=== PATIENT | male | born 1955 | race African-American/Black ===

== ENCOUNTER 2017-04-01 10:44 | Inpatient (IN) | payer MEDICAID ==
[~2017-04-01] VITALS: Ht 175.3 cm; Wt 80.0 kg
[2017-04-01] MEDS ORDERED: SODIUM CHLORIDE 0.9% 1,000 ML IV ONE (11:06)
[2017-04-01] MEDS ORDERED: ASPirin 81 mg TAB PO ONE (11:15)
[2017-04-01 11:34] LABS: Mean Corpuscular Hemoglobin 27.9 pg (28.0-32.0); Mean Corpuscular Hgb Conc. 32.7 g/dL (32.0-36.0); Mean Corpuscular Volume 85.5 fL (80.0-100.0); Platelet Count (auto) 297 10^3/uL (140-450); Red Blood Cells 5.38 10^6/uL (4.5-5.90); Red Cell Distribution Width 13.8 % (11.8-14.3); White Blood Cell 7.6 10^3/uL (4.4-10.8)
[2017-04-01 11:51] LABS: INR 0.98 (0.9-1.15); Partial Thromboplastin Time 26.8 sec (22.64-33.71); Prothrombin Time 10.7 sec (9.37-12.3)
[2017-04-01 11:52] LABS: Basophils % (manual) 0 (0.0-2.0); Blast Cells 0; Metamyelocytes % 0; Myelocytes % 0; Promyelocytes % 0; Reactive Lymphocytes 0
[2017-04-01 11:53] LABS: Alanine Aminotransferase 32 U/L (16-61); Albumin 3.5 g/dL (3.4-5.0); Anion Gap 3 (5-15); Aspartate Aminotransferase 26 U/L (15-37); BUN/Creatinine Ratio 10.4; Blood Urea Nitrogen 12 mg/dL (7-18); Calcium 8.6 mg/dL (8.5-10.1); Carbon Dioxide 30 mmol/L (21-32); Chloride 104 mmol/L (98-107); GFR African American 83 mL/min; GFR Non-African American 68 mL/min; Glucose 130 mg/dL (74-106); Magnesium 2.1 mg/dL (1.6-2.6); Potassium 3.9 mmol/L (3.5-5.1); Sodium 137 mmol/L (136-145)
[2017-04-01 11:58] LABS: Alkaline Phosphatase 100 U/L (45-117); Bilirubin, Total 0.4 mg/dL (0.2-1.0); Total Protein 8.2 g/dL (6.4-8.2)
[2017-04-01 12:36] LABS: Band Neutrophils % (manual) 1; Eosinophils % (manual) 2 (0-7); Lymphocytes % (manual) 54 (10.0-50.0); Monocytes % (manual) 11 (0-12)
[2017-04-01] MEDS ORDERED: ONDANSETRON HCL 4 MG/2 ML VIAL IV PRN (13:15)
[2017-04-01] MEDS ORDERED: MORPHINE SULFATE 4 MG/ML SYR/VIAL IV PRN (13:15)
[2017-04-01] MEDS ORDERED: HYDROcodone-ACET 7.5/325MG TAB PO PRN (13:15)
[2017-04-01] MEDS ORDERED: NITROGLYCERIN 0.4 MG SL TAB SL PRN (13:15)
[2017-04-01] MEDS: SODIUM CHLORIDE 0.9% 1,000 ML IV SCH (13:23)
[2017-04-01] MEDS ORDERED: PANTOPRAZOLE 40 MG TAB PO ONE (13:30)
[2017-04-01 13:57] LABS: Cholesterol 117 mg/dL (< 200); HDL Cholesterol 44 mg/dL (40-59); LDL Cholesterol 67 mg/dL (< 100); Triglycerides 99 mg/dL (< 150)
[2017-04-01 17:23] LABS: Urine Bacteria NONE SEEN /hpf (None Seen); Urine Blood TRACE /uL (Negative); Urine Hyaline Cast FEW /lpf (0 - 2); Urine Mucus FEW (None Seen); Urine Specific Gravity 1.026 (1.001-1.035); Urine WBC 2 /hpf (0 - 3)
[2017-04-01 17:39] LABS: Alcohol, Urine < 3.0 mg/dL (0-5); Amphetamine Screen, Urine NEGATIVE (NEGATIVE); Barbiturate Scree,Urine NEGATIVE (NEGATIVE); Benzodiazephine Screen, Urine NEGATIVE (NEGATIVE); Cannabinoid Screen, Urine NEGATIVE (NEGATIVE); Cocaine Screen, Urine NEGATIVE (NEGATIVE); Opiate Scree,Urine POSITIVE (NEGATIVE); Phencyclidine Screen, Urine NEGATIVE (NEGATIVE)
[2017-04-01] MEDS ORDERED: ALPR1TAB2 PO (18:15)
[2017-04-01] MEDS ORDERED: OXYC30TA77 PO (18:15)
[2017-04-01 20:20] VITALS: BP 121/87
[2017-04-02] MEDS: SODIUM CHLORIDE 0.9% 1,000 ML IV SCH ×3 (02:35→10:06)
[2017-04-02 05:00] VITALS: BP 114/73
[2017-04-02 06:50] LABS: Hematocrit 41.3 % (41.0-53.0); Hemoglobin 13.7 g/dL (13.5-17.5); Mean Corpuscular Hemoglobin 28.3 pg (28.0-32.0); Mean Corpuscular Hgb Conc. 33.2 g/dL (32.0-36.0); Mean Corpuscular Volume 85.1 fL (80.0-100.0); Platelet Count (auto) 246 10^3/uL (140-450); Red Blood Cells 4.85 10^6/uL (4.5-5.90); Red Cell Distribution Width 13.7 % (11.8-14.3)
[2017-04-02 07:09] LABS: Anion Gap 3 (5-15); Blood Urea Nitrogen 13 mg/dL (7-18); Carbon Dioxide 27 mmol/L (21-32); Chloride 108 mmol/L (98-107); GFR African American 124 mL/min; GFR Non-African American 103 mL/min; Glucose 86 mg/dL (74-106); Potassium 3.8 mmol/L (3.5-5.1); Sodium 138 mmol/L (136-145)
[2017-04-02 07:19] LABS: Band Neutrophils % (manual) 0; Basophils % (manual) 0 (0.0-2.0); Blast Cells 0; Metamyelocytes % 0; Myelocytes % 0; Promyelocytes % 0; Reactive Lymphocytes 0
[2017-04-02 09:00] VITALS: BP 116/72
[2017-04-02] MEDS: PANTOPRAZOLE 40 MG TAB PO SCH (10:05)
[2017-04-02] MEDS: ASPirin 81 mg TAB PO SCH (10:05)
[2017-04-02 13:00] VITALS: BP 119/75
[2017-04-02 14:46] LABS: Eosinophils % (manual) 2 (0-7); Lymphocytes % (manual) 59 (10.0-50.0); Monocytes % (manual) 12 (0-12)
[2017-04-02] MEDS ORDERED: LORazepam 2MG/ML-1ML VIAL IV ONE (15:00)
[2017-04-02 17:00] VITALS: BP 114/64
[2017-04-02 22:00] VITALS: BP 119/75
[2017-04-03 05:00] VITALS: BP 108/79
[2017-04-03 09:00] VITALS: BP 131/78
[2017-04-03] MEDS: ASPirin 81 mg TAB PO SCH (10:01)
[2017-04-03] MEDS: PANTOPRAZOLE 40 MG TAB PO SCH (10:01)
[2017-04-03 13:00] VITALS: BP 141/75
[2017-04-03 17:00] VITALS: BP 123/83
[2017-04-03] MEDS: SODIUM CHLORIDE 0.9% 1,000 ML IV SCH (18:41)
[2017-04-03 21:49] VITALS: BP 144/81
[2017-04-03] MEDS: PRO-STAT 64 30ML GT SCH (22:04)
[2017-04-04 05:00] VITALS: BP 130/85
[2017-04-04 07:08] LABS: Basophils # (auto) 0 uL; Basophils % (auto) 0.4 % (0.0-2.0); Eosinophils # (auto) 0.2 uL; Eosinophils % (auto) 2.6 % (0.0-7.0); Hematocrit 40.3 % (41.0-53.0); Hemoglobin 13.3 g/dL (13.5-17.5); Lymphocytes # (auto) 3.2 uL; Lymphocytes % (auto) 48.5 % (10.0-50.0); Mean Corpuscular Hemoglobin 28.4 pg (28.0-32.0); Mean Corpuscular Hgb Conc. 32.9 g/dL (32.0-36.0); Mean Corpuscular Volume 86.1 fL (80.0-100.0); Monocytes # (auto) 0.7 uL; Monocytes % (auto) 10.5 % (0.0-12.0); Neutrophils # (auto) 2.5 uL; Nucleated Red Blood Cells % 0.1 %; Platelet Count (auto) 260 10^3/uL (140-450); Red Blood Cells 4.68 10^6/uL (4.5-5.90); Red Cell Distribution Width 13.6 % (11.8-14.3); White Blood Cell 6.6 10^3/uL (4.4-10.8)
[2017-04-04] MEDS ORDERED: LIDOCAINE 2%HCL (LOCAL ANESTH.) INJ 20ML MDV ONE (07:14)
[2017-04-04 07:31] LABS: BUN/Creatinine Ratio 14.1; Calcium 8.3 mg/dL (8.5-10.1); Potassium 3.6 mmol/L (3.5-5.1)
[2017-04-04] MEDS ORDERED: ceFAZolin 1GM/50ML 50 ML IV ONE (07:34)
[2017-04-04] MEDS ORDERED: fentaNYL CITRATE 100 MCG/2 ML VL ONE (07:34)
[2017-04-04] MEDS ORDERED: MIDAZOLAM HCL 1MG/1ML-2 ML VIAL ONE (07:34)
[2017-04-04] MEDS ORDERED: VANCOMYCIN HCL 1000 MG VL ONE (07:34)
[2017-04-04] MEDS ORDERED: VANCOMYCIN 1GM/250ML 250 ML IV ONE (07:34)
[2017-04-04] MEDS: SODIUM CHLORIDE 0.9% 1,000 ML IV SCH (07:55)
[2017-04-04 09:00] VITALS: BP 173/80
[2017-04-04] MEDS ORDERED: HYDROmorphone HCL 2 MG/ML VL ONE (09:26)
[2017-04-04] MEDS: PRO-STAT 64 30ML GT SCH ×2 (10:00→22:17)
[2017-04-04] MEDS: ASPirin 81 mg TAB PO SCH (10:00)
[2017-04-04] MEDS: PANTOPRAZOLE 40 MG TAB PO SCH (10:00)
[2017-04-04] MEDS ORDERED: ACETAMINOPHEN 325 MG TAB PO PRN (10:30)
[2017-04-04] MEDS ORDERED: HYDROcodone-ACET 5/325MG TAB PO PRN (10:30)
[2017-04-04] MEDS: MORPHINE SULFATE 4 MG/ML SYR/VIAL IV PRN ×2 (13:11→19:44)
[2017-04-04 17:24] VITALS: BP 99/58
[2017-04-04] MEDS: VANCOMYCIN 1GM/250ML 250 ML IV SCH (18:38)
[2017-04-04 22:15] VITALS: BP 115/69
[2017-04-05 05:30] VITALS: BP 121/86
[2017-04-05] MEDS: VANCOMYCIN 1GM/250ML 250 ML IV SCH (06:40)
[2017-04-05] MEDS: MORPHINE SULFATE 4 MG/ML SYR/VIAL IV PRN (06:46)
[2017-04-05 08:00] VITALS: BP 121/71
[2017-04-05 09:00] VITALS: BP 121/71
[2017-04-05] MEDS: PRO-STAT 64 30ML GT SCH (10:00)
[2017-04-05] MEDS: PANTOPRAZOLE 40 MG TAB PO SCH (11:03)
[2017-04-05 11:40] VITALS: BP 121/71
== END 2017-04-05 14:23 | disposition home or self-care (01) | DRG 171 ==
LOC: ER 10:44 → TELE 10:45 → TELE-EAST 19:10
PROVIDERS: ADMIT Internal Medicine; ATTEND Internal Medicine
PROC: 0JH606Z Insertion of Pacemaker, Dual Chamber into Chest Subcutaneous Tissue and Fascia, Open Approach (ICD-10-PCS; principal; 2017-04-04)
PROC: 02HK3JZ Insertion of Pacemaker Lead into Right Ventricle, Percutaneous Approach (ICD-10-PCS; 2017-04-04)
PROC: 02H63JZ Insertion of Pacemaker Lead into Right Atrium, Percutaneous Approach (ICD-10-PCS; 2017-04-04)
DX: I49.5 Sick sinus syndrome (principal); I95.9 Hypotension, unspecified; R56.9 Unspecified convulsions; J44.9 Chronic obstructive pulmonary disease, unspecified; R55 Syncope and collapse; D72.829 Elevated white blood cell count, unspecified; F17.210 Nicotine dependence, cigarettes, uncomplicated; I70.0 Atherosclerosis of aorta; I08.0 Rheumatic disorders of both mitral and aortic valves; M54.5 Low back pain; G89.29 Other chronic pain; M75.100 Unspecified rotator cuff tear or rupture of unspecified shoulder, not specified as traumatic
CPT/HCPCS: 33208; 36415; 70450; 70551; 71045; 71046; 80048; 80053; 80061; 80307; 81001; 83036; 83735; 83880; 84132; 84443; 84484; 85007; 85025; 85027; 85379; 85610; 85730; 87804; 93005; 93306; 93886; 94761; 96360; 96361; 99152; 99291; C1785; J0690; J2250

== ENCOUNTER → 2017-05-13 | Outpatient (CLI) | payer MEDICAID ==
[~2017-05-13] VITALS: Ht 177.8 cm; Wt 81.6 kg
[~2017-05-13] MED LIST: ALPR1TAB2 PO; OXYC30TA77 PO
== END | disposition home or self-care (01) ==
LOC: Rad HDHVI 09:14
PROVIDERS: ATTEND Internal Medicine Cardiovascular Disease
DX: Z01.810 Encounter for preprocedural cardiovascular examination (principal); I49.5 Sick sinus syndrome
CPT/HCPCS: 78452; 93017; 96374; A9500

== ENCOUNTER 2018-05-27 14:42 | Emergency (ER) | payer MEDICAID ==
[~2018-05-27] VITALS: Ht 180.3 cm; Wt 79.4 kg
[2018-05-27 15:19] LABS: Basophils # (auto) 0.1 uL; Eosinophils # (auto) 0.1 uL; Eosinophils % (auto) 1.3 % (0.0-7.0); Hematocrit 43.8 % (41.0-53.0); Hemoglobin 14.2 g/dL (13.5-17.5); Lymphocytes # (auto) 2.5 uL; Lymphocytes % (auto) 31.5 % (10.0-50.0); Mean Corpuscular Hemoglobin 27.8 pg (28.0-32.0); Mean Corpuscular Hgb Conc. 32.5 g/dL (32.0-36.0); Mean Corpuscular Volume 85.6 fL (80.0-100.0); Monocytes # (auto) 0.7 uL; Monocytes % (auto) 8.6 % (0.0-12.0); Neutrophils # (auto) 4.5 uL; Neutrophils % (auto) 57.6 % (37.0-80.0); Nucleated Red Blood Cells % 0.1 %; Platelet Count (auto) 288 10^3/uL (140-450); Red Blood Cells 5.12 10^6/uL (4.5-5.90); Red Cell Distribution Width 13.8 % (11.8-14.3); White Blood Cell 7.9 10^3/uL (4.4-10.8)
[2018-05-27 15:43] LABS: Albumin 3.5 g/dL (3.4-5.0); Amylase 47 U/L (25-115); Anion Gap 5 (5-15); Blood Urea Nitrogen 8 mg/dL (7-18); Calcium 8.5 mg/dL (8.5-10.1); Carbon Dioxide 27 mmol/L (21-32); Chloride 106 mmol/L (98-107); Glucose 100 mg/dL (74-106); Lipase 149 U/L (73-393); Sodium 138 mmol/L (136-145)
[2018-05-27 15:50] LABS: Alanine Aminotransferase 25 U/L (16-61); Alkaline Phosphatase 102 U/L (45-117); Aspartate Aminotransferase 22 U/L (15-37); BUN/Creatinine Ratio 8.2; Bilirubin, Total 0.3 mg/dL (0.2-1.0); GFR African American 101 mL/min; GFR Non-African American 83 mL/min; Total Protein 7.7 g/dL (6.4-8.2)
[2018-05-27 16:40] LABS: Urine Bacteria NONE SEEN /hpf (None Seen); Urine Blood 1+ /uL (Negative); Urine Mucus FEW (None Seen); Urine Specific Gravity 1.016 (1.001-1.035); Urine WBC 1 /hpf (0 - 3)
[2018-05-27] MEDS ORDERED: PANTOPRAZOLE 40 MG TAB PO ONE (17:00)
[2018-05-27 17:12] VITALS: BP 111/71
[2018-05-27] MEDS ORDERED: KETOROLAC TROMETH 60MG/2ML VIAL IM ONE (17:15)
== END 2018-05-27 17:02 | disposition home or self-care (01) ==
LOC: ER 14:42
DX: K29.70 Gastritis, unspecified, without bleeding (principal); F17.210 Nicotine dependence, cigarettes, uncomplicated
CPT/HCPCS: 36415; 71046; 74176; 80053; 81001; 82150; 83690; 83735; 84484; 85025; 93005; 96372; 99284; J1885

== ENCOUNTER → 2018-09-25 | Outpatient (CLI) | payer MEDICAID | END | disposition home or self-care (01) | LOC: Rad HDHVI 16:17 | PROVIDERS: ATTEND Internal Medicine Cardiovascular Disease | DX: I35.1 Nonrheumatic aortic (valve) insufficiency (principal); I49.5 Sick sinus syndrome | CPT/HCPCS: 93306 ==

== ENCOUNTER → 2021-11-29 | Outpatient (CLI) | payer MEDICARE, MEDICAID | END | disposition home or self-care (01) | LOC: Rad HDHVI 15:38 | PROVIDERS: ATTEND Internal Medicine Cardiovascular Disease | DX: E78.5 Hyperlipidemia, unspecified (principal); R07.89 Other chest pain; I35.0 Nonrheumatic aortic (valve) stenosis | CPT/HCPCS: 93306 ==

== ENCOUNTER → 2021-12-05 | Outpatient (CLI) | payer MEDICARE, MEDICAID ==
[~2021-12-05] VITALS: Ht 177.8 cm; Wt 72.6 kg
== END | disposition home or self-care (01) ==
LOC: Rad HDHVI 08:04
PROVIDERS: ATTEND Internal Medicine Cardiovascular Disease
DX: R06.02 Shortness of breath (principal); I49.5 Sick sinus syndrome; F17.210 Nicotine dependence, cigarettes, uncomplicated; Z01.810 Encounter for preprocedural cardiovascular examination; Z95.0 Presence of cardiac pacemaker
CPT/HCPCS: 78452; 93017; 96374; A9500

== ENCOUNTER 2022-07-05 22:40 | Emergency (ER) | payer MEDICARE, MEDICAID ==
[~2022-07-05] VITALS: Ht 172.7 cm; Wt 70.0 kg
== END 2022-07-06 23:05 | disposition left against medical advice (07) ==
LOC: ER 22:40 → EDBD 22:40 → ER 22:45
DX: M54.2 Cervicalgia (principal); Z53.21 Procedure and treatment not carried out due to patient leaving prior to being seen by health care provider

== ENCOUNTER 2022-12-16 11:24 | Inpatient (IN) | payer MEDICARE, MEDICAID ==
[~2022-12-16] VITALS: Ht 180.3 cm; Wt 78.0 kg
[2022-12-16 11:51] LABS: Basophils # (auto) 0 10 ^3/uL (0-0.2); Basophils % (auto) 0.5 % (0.0-2.0); Eosinophils # (auto) 0.3 10 ^3/uL (0-0.8); Eosinophils % (auto) 3.8 % (0.0-7.0); Hemoglobin 13.7 g/dL (13.5-17.5); Lymphocytes # (auto) 3.2 10 ^3/uL (0.4-5.4); Lymphocytes % (auto) 39.5 % (10.0-50.0); Mean Corpuscular Hemoglobin 28.2 pg (28.0-32.0); Mean Corpuscular Hgb Conc. 33.4 g/dL (32.0-36.0); Mean Corpuscular Volume 84.3 fL (80.0-100.0); Monocytes # (auto) 0.9 10 ^3/uL (0-1.3); Monocytes % (auto) 10.4 % (0.0-12.0); Neutrophils # (auto) 3.8 10 ^3/uL (1.6-8.6); Neutrophils % (auto) 45.8 % (37.0-80.0); Nucleated Red Blood Cells % 0.1 %; Red Blood Cells 4.86 10^6/uL (4.5-5.90); Red Cell Distribution Width 14.4 % (11.8-14.3); White Blood Cell 8.2 10^3/uL (4.4-10.8)
[2022-12-16 12:06] LABS: Alanine Aminotransferase 29 U/L (7-40); Albumin 4.4 g/dL (3.2-4.8); Alkaline Phosphatase 102 U/L (46-116); Anion Gap 7 (5-15); Aspartate Aminotransferase 32 U/L (13-40); BUN/Creatinine Ratio 13.1 (10.0-20.0); Bilirubin, Total 0.4 mg/dL (0.2-1.0); Blood Urea Nitrogen 13 mg/dL (9-23); Calcium 9.2 mg/dL (8.5-10.1); Carbon Dioxide 27 mmol/L (20-30); Chloride 107 mmol/L (98-107); Glucose 79 mg/dL (74-106); Potassium 4.1 mmol/L (3.5-5.1); Sodium 141 mmol/L (136-145); Total Protein 7.2 g/dL (5.7-8.2)
[2022-12-16] MEDS ORDERED: ASPirin 325 MG TAB PO ONE (15:30)
[2022-12-16] MEDS ORDERED: IOHEXOL 350 MG/ML 100ML IJ ONE (16:38)
[2022-12-16] MEDS ORDERED: ACETAMINOPHEN 325 MG TAB PO PRN (16:45)
[2022-12-16] MEDS ORDERED: KETOROLAC TROMETH 30 MG/ML 1ML VIAL IV ONE (16:45)
[2022-12-16] MEDS ORDERED: MORPHINE SULFATE INJ 2 MG/ml SYRG IV PRN (16:45)
[2022-12-16] MEDS ORDERED: NITROGLYCERIN 0.4 MG SL TAB SL PRN (16:45)
[2022-12-16 17:15] LABS: Triglycerides 109 mg/dL (< 150)
[2022-12-16 17:16] LABS: LDL Cholesterol 38 mg/dL (< 100)
[2022-12-16 17:17] LABS: Cholesterol 113 mg/dL (< 200); HDL Cholesterol 54 mg/dL (40-59)
[2022-12-16 17:25] VITALS: BP 138/79; PULSE 87; RESP 18; TEMP 98; O2SAT 96
[2022-12-17] MEDS ORDERED: ASPirin 81 mg TAB PO SCH (10:00)
[2022-12-17] MEDS ORDERED: ENOXAPARIN SOD 40 MG/0.4 ML SYRINGE SC SCH (10:00)
== END 2022-12-17 14:49 | disposition home or self-care (01) | DRG 198 ==
LOC: ER 11:24 → TELE 16:41
PROVIDERS: ADMIT Internal Medicine
DX: R07.89 Other chest pain (principal); I24.9 Acute ischemic heart disease, unspecified; I49.5 Sick sinus syndrome; J44.9 Chronic obstructive pulmonary disease, unspecified; Z95.0 Presence of cardiac pacemaker; Z87.891 Personal history of nicotine dependence
CPT/HCPCS: 36415; 71045; 71275; 80053; 80061; 83880; 84443; 84484; 85025; 93005; G0378; J1885

== ENCOUNTER → 2023-01-16 | Outpatient (CLI) | payer MEDICARE, MEDICAID | END | disposition home or self-care (01) | LOC: Rad HDHVI 13:51 | PROVIDERS: ATTEND Internal Medicine Cardiovascular Disease | DX: R00.0 Tachycardia, unspecified (principal) | CPT/HCPCS: 93306 ==

== ENCOUNTER → 2023-03-18 | Outpatient (CLI) | payer MEDICARE, MEDICAID | END | disposition home or self-care (01) | LOC: Rad HDHVI 08:58 | PROVIDERS: ATTEND Internal Medicine Cardiovascular Disease | DX: I35.1 Nonrheumatic aortic (valve) insufficiency (principal); R07.89 Other chest pain; E78.5 Hyperlipidemia, unspecified | CPT/HCPCS: 93306 ==

== ENCOUNTER → 2023-03-21 | Outpatient (CLI) | payer MEDICARE, MEDICAID ==
[~2023-03-21] VITALS: Ht 180.3 cm; Wt 74.8 kg
== END | disposition home or self-care (01) ==
LOC: Rad HDHVI 08:01
PROVIDERS: ATTEND Internal Medicine Cardiovascular Disease
DX: I10 Essential (primary) hypertension (principal); I49.5 Sick sinus syndrome; E78.00 Pure hypercholesterolemia, unspecified; F17.210 Nicotine dependence, cigarettes, uncomplicated; Z95.0 Presence of cardiac pacemaker
CPT/HCPCS: 78472; 96374; 96375; A9505

== ENCOUNTER 2023-07-17 11:59 | Inpatient (IN) | payer MEDICARE, MEDICAID ==
[~2023-07-17] VITALS: Ht 181.6 cm; Wt 70.0 kg
[2023-07-17 14:05] LABS: Basophils # (auto) 0 10 ^3/uL (0-0.2); Basophils % (auto) 0.2 % (0.0-2.0); Eosinophils # (auto) 0.4 10 ^3/uL (0-0.8); Eosinophils % (auto) 3.6 % (0.0-7.0); Hematocrit 39.6 % (41.0-53.0); Hemoglobin 12.9 g/dL (13.5-17.5); Lymphocytes % (auto) 18.2 % (10.0-50.0); Mean Corpuscular Hgb Conc. 32.7 g/dL (32.0-36.0); Mean Corpuscular Volume 85.7 fL (80.0-100.0); Monocytes % (auto) 8.9 % (0.0-12.0); Neutrophils # (auto) 7.5 10 ^3/uL (1.6-8.6); Neutrophils % (auto) 69.1 % (37.0-80.0); Red Blood Cells 4.62 10^6/uL (4.5-5.90); Red Cell Distribution Width 13.9 % (11.8-14.3); White Blood Cell 10.9 10^3/uL (4.4-10.8)
[2023-07-17 14:28] LABS: Alanine Aminotransferase 13 U/L (7-40); Albumin 4.1 g/dL (3.2-4.8); Alkaline Phosphatase 93 U/L (46-116); Anion Gap 3 (5-15); Aspartate Aminotransferase 21 U/L (13-40); BUN/Creatinine Ratio 8.4 (10.0-20.0); Blood Urea Nitrogen 7 mg/dL (9-23); Calcium 9.3 mg/dL (8.5-10.1); Carbon Dioxide 28 mmol/L (20-30); Chloride 107 mmol/L (98-107); Glucose 96 mg/dL (74-106); Magnesium 1.8 mg/dL (1.6-2.6); Potassium 3.7 mmol/L (3.5-5.1); Sodium 138 mmol/L (136-145)
[2023-07-17 14:29] LABS: Bilirubin, Total 0.5 mg/dL (0.2-1.0)
[2023-07-17] MEDS: HYDROcodone-ACET 5/325MG TAB PO ONE (15:19)
[2023-07-17 15:40] LABS: Urine Bacteria None Seen /hpf (None Seen)
[2023-07-17 15:41] VITALS: PULSE 79; RESP 19; O2SAT 97
[2023-07-17 15:58] LABS: Urine Blood 1+ /uL (Negative); Urine Clarity Clear (Clear); Urine Color Light-Yellow (Yellow); Urine Protein, UAD Negative (Negative); Urine Specific Gravity 1.015 (1.001-1.035); Urine Urobilinogen Normal (Negative); Urine WBC 1 /hpf (0 - 3)
[2023-07-17 16:03] LABS: Amphetamine Screen, Urine Neg (NEGATIVE); Barbiturate Scree,Urine Neg (NEGATIVE); Benzodiazephine Screen, Urine Neg (NEGATIVE)
[2023-07-17 16:04] LABS: Cannabinoid Screen, Urine Neg (NEGATIVE); Cocaine Screen, Urine Neg (NEGATIVE); Opiate Scree,Urine Neg (NEGATIVE); Phencyclidine Screen, Urine Neg (NEGATIVE)
[2023-07-17] MEDS: CIPROFLOXACIN 400MG/200ML 200 ML IV ONE (17:14)
[2023-07-17] MEDS: metroNIDAZOLE 500MG/100ML 100 ML IV ONE (18:59)
[2023-07-17] MEDS ORDERED: DOCUSATE SOD 100 MG CAP PO PRN (19:00)
[2023-07-17] MEDS ORDERED: PIPERACILLIN-TAZOB 3.375GM 100 ML IV SCH ×2 (19:15→20:40)
[2023-07-17 19:30] VITALS: PULSE 71; RESP 18; O2SAT 95
[2023-07-17] MEDS: SODIUM CHLORIDE 0.9% 1,000 ML IV ONE (20:46)
[2023-07-17] MEDS: PIPERACILLIN-TAZOB 3.375GM 100 ML IV ONE (20:46)
[2023-07-17] MEDS: ONDANSETRON HCL 4 MG/2 ML VIAL IV PRN (20:47)
[2023-07-17] MEDS: MORPHINE SULFATE INJ 2 MG/ml SYRG IV PRN (20:47)
[2023-07-17] MEDS: SODIUM CHLORIDE 0.9% 1,000 ML IV SCH (20:48)
[2023-07-18 03:43] LABS: Basophils # (auto) 0 10 ^3/uL (0-0.2); Basophils % (auto) 0.4 % (0.0-2.0); Eosinophils # (auto) 0.4 10 ^3/uL (0-0.8); Eosinophils % (auto) 3.8 % (0.0-7.0); Hemoglobin 12.6 g/dL (13.5-17.5); Lymphocytes # (auto) 2.6 10 ^3/uL (0.4-5.4); Lymphocytes % (auto) 26.1 % (10.0-50.0); Mean Corpuscular Hemoglobin 28.3 pg (28.0-32.0); Mean Corpuscular Hgb Conc. 33.2 g/dL (32.0-36.0); Mean Corpuscular Volume 85.3 fL (80.0-100.0); Monocytes % (auto) 9.6 % (0.0-12.0); Neutrophils # (auto) 6.1 10 ^3/uL (1.6-8.6); Neutrophils % (auto) 60.1 % (37.0-80.0); Red Blood Cells 4.45 10^6/uL (4.5-5.90); Red Cell Distribution Width 13.7 % (11.8-14.3); White Blood Cell 10.1 10^3/uL (4.4-10.8)
[2023-07-18 03:58] LABS: Alanine Aminotransferase 12 U/L (7-40); Albumin 3.9 g/dL (3.2-4.8); Alkaline Phosphatase 87 U/L (46-116); Anion Gap 4 (5-15); Aspartate Aminotransferase 18 U/L (13-40); Blood Urea Nitrogen 7 mg/dL (9-23); Calcium 8.9 mg/dL (8.5-10.1); Carbon Dioxide 28 mmol/L (20-30); Chloride 107 mmol/L (98-107); Glucose 93 mg/dL (74-106); Potassium 3.7 mmol/L (3.5-5.1); Sodium 139 mmol/L (136-145)
[2023-07-18 03:59] LABS: Bilirubin, Total 0.6 mg/dL (0.2-1.0); Total Protein 6.8 g/dL (5.7-8.2)
[2023-07-18] MEDS: PIPERACILLIN-TAZOB 3.375GM 100 ML IV SCH (06:25)
[2023-07-18 08:00] VITALS: PULSE 82; RESP 13; O2SAT 95
[2023-07-18] MEDS: HYDROmorphone HCL 2 MG/ML VL/or syr IV PRN ×2 (10:04→15:54)
[2023-07-18 12:40] VITALS: PULSE 70; RESP 16; O2SAT 93
[2023-07-18 13:00] VITALS: BP 131/79; PULSE 70; RESP 16; TEMP 98.4; O2SAT 93
[2023-07-18 13:11] VITALS: BP 131/79; PULSE 70; RESP 16; TEMP 98.4; O2SAT 93
[2023-07-18 16:58] VITALS: BP 111/73; PULSE 77; RESP 17; TEMP 97.9; O2SAT 93
[2023-07-18 20:00] VITALS: PULSE 75; PULSE 85
[2023-07-18] MEDS: CARVEDILOL 3.125 MG TAB PO SCH (21:25)
[2023-07-19] VITALS (7 sets, daily range): BP systolic 103–139; BP diastolic 64–83; PULSE 70–79; RESP 17–20; TEMP 97.3–98.6; O2SAT 94–97
[2023-07-19 06:23] LABS: Chloride 106 mmol/L (98-107); Potassium 3.7 mmol/L (3.5-5.1); Sodium 140 mmol/L (136-145)
[2023-07-19 06:24] LABS: Anion Gap 7 (5-15); Carbon Dioxide 27 mmol/L (20-30)
[2023-07-19 06:25] LABS: Calcium 9.3 mg/dL (8.7-10.4)
[2023-07-19 06:26] LABS: Basophils # (auto) 0 10 ^3/uL (0-0.2); Basophils % (auto) 0.4 % (0.0-2.0); Eosinophils # (auto) 0.4 10 ^3/uL (0-0.8); Eosinophils % (auto) 5.4 % (0.0-7.0); Hematocrit 39.7 % (41.0-53.0); Hemoglobin 13.2 g/dL (13.5-17.5); Lymphocytes # (auto) 2.4 10 ^3/uL (0.4-5.4); Lymphocytes % (auto) 29.4 % (10.0-50.0); Mean Corpuscular Hemoglobin 28.5 pg (28.0-32.0); Mean Corpuscular Hgb Conc. 33.3 g/dL (32.0-36.0); Mean Corpuscular Volume 85.5 fL (80.0-100.0); Monocytes # (auto) 0.9 10 ^3/uL (0-1.3); Monocytes % (auto) 10.8 % (0.0-12.0); Neutrophils # (auto) 4.3 10 ^3/uL (1.6-8.6); Red Blood Cells 4.64 10^6/uL (4.5-5.90); Red Cell Distribution Width 13.8 % (11.8-14.3)
[2023-07-19 06:29] LABS: Glucose 94 mg/dL (74-106)
[2023-07-19 06:30] LABS: BUN/Creatinine Ratio 8.1 (10.0-20.0); Blood Urea Nitrogen 7 mg/dL (9-23)
[2023-07-19] MEDS: SODIUM CHLORIDE 0.9% 1,000 ML IV SCH (06:48)
[2023-07-19] MEDS: PANTOPRAZOLE 40 MG/10 ML VIAL INJ IV SCH (08:20)
[2023-07-20 01:00] VITALS: BP 131/82; PULSE 78; RESP 17; TEMP 98.1; O2SAT 94
[2023-07-20 05:00] VITALS: BP 113/66; PULSE 65; RESP 17; TEMP 98.6; O2SAT 98
[2023-07-20] MEDS: HYDROcodone-ACET 5/325MG TAB PO PRN (05:34)
[2023-07-20 08:00] VITALS: BP 132/87; PULSE 80; RESP 20; TEMP 97.9; O2SAT 97
[2023-07-20 12:00] VITALS: BP 100/61; PULSE 62; RESP 18; TEMP 98.4; O2SAT 96
[2023-07-20] MEDS ORDERED: METR-344 PO ×2 (14:29)
[2023-07-20] MEDS ORDERED: LEVO500T91 PO ×2 (14:29)
[2023-07-20 15:38] VITALS: BP 115/68; PULSE 79; TEMP 36.6
[2023-07-20 16:00] VITALS: BP 106/71; PULSE 77; RESP 17; TEMP 97.9; O2SAT 98
== END 2023-07-20 18:50 | disposition home or self-care (01) | DRG 244 ==
LOC: ER 11:59 → OVERFLOW 19:07 → WEST WING 23:54 → OVERFLOW 23:54 → WEST WING 07-18 00:35 → TELE-WESTW 07-18 12:14 → WEST WING 07-20 15:09
PROVIDERS: ADMIT Internal Medicine; ATTEND Internal Medicine
DX: K57.32 Diverticulitis of large intestine without perforation or abscess without bleeding (principal); D64.9 Anemia, unspecified; E86.0 Dehydration; J44.9 Chronic obstructive pulmonary disease, unspecified; F17.210 Nicotine dependence, cigarettes, uncomplicated; R31.29 Other microscopic hematuria; Z95.0 Presence of cardiac pacemaker; R52 Pain, unspecified
CPT/HCPCS: 36415; 71045; 74176; 80048; 80053; 80307; 81001; 83605; 83735; 83880; 84484; 85025; 93005; 96365; 96366; 99291; C9113; G0378; J2405; J2543

== ENCOUNTER 2023-07-22 09:08 | Inpatient (IN) | payer MEDICARE, MEDICAID ==
[~2023-07-22] VITALS: Ht 180.3 cm; Wt 127.9 kg
[~2023-07-22 09:08] MED LIST changes: +LEVO500T91 PO; +METR-344 PO
[2023-07-22 10:47] LABS: Basophils # (auto) 0 10 ^3/uL (0-0.2); Basophils % (auto) 0.6 % (0.0-2.0); Eosinophils # (auto) 0.4 10 ^3/uL (0-0.8); Hematocrit 42.5 % (41.0-53.0); Hemoglobin 14.1 g/dL (13.5-17.5); Lymphocytes # (auto) 2.7 10 ^3/uL (0.4-5.4); Lymphocytes % (auto) 38.3 % (10.0-50.0); Mean Corpuscular Hemoglobin 28.1 pg (28.0-32.0); Mean Corpuscular Hgb Conc. 33.2 g/dL (32.0-36.0); Mean Corpuscular Volume 84.7 fL (80.0-100.0); Monocytes # (auto) 0.8 10 ^3/uL (0-1.3); Neutrophils # (auto) 3.2 10 ^3/uL (1.6-8.6); Neutrophils % (auto) 45.1 % (37.0-80.0); Nucleated Red Blood Cells % 0.1 %; Red Blood Cells 5.02 10^6/uL (4.5-5.90); Red Cell Distribution Width 13.7 % (11.8-14.3)
[2023-07-22] MEDS: SODIUM CHLORIDE 0.9% 1,000 ML IV ONE ×2 (11:11→11:12)
[2023-07-22] MEDS: MORPHINE SULFATE 4 MG/ML SYR/VIAL IV ONE (11:12)
[2023-07-22] MEDS: ONDANSETRON HCL 4 MG/2 ML VIAL IV ONE (11:12)
[2023-07-22 11:13] LABS: Anion Gap 4 (5-15); Carbon Dioxide 25 mmol/L (20-30); Chloride 108 mmol/L (98-107); Potassium 3.8 mmol/L (3.5-5.1); Sodium 137 mmol/L (136-145)
[2023-07-22 11:14] LABS: Calcium 9.6 mg/dL (8.5-10.1)
[2023-07-22 11:19] LABS: BUN/Creatinine Ratio 10.6 (10.0-20.0); Blood Urea Nitrogen 9 mg/dL (9-23); Glucose 98 mg/dL (74-106)
[2023-07-22] MEDS ORDERED: DOCUSATE SOD 100 MG CAP PO PRN (14:00)
[2023-07-22] MEDS ORDERED: NITROGLYCERIN 0.4 MG SL TAB SL PRN (14:00)
[2023-07-22] MEDS ORDERED: ACETAMINOPHEN 325 MG TAB PO PRN (14:00)
[2023-07-22] MEDS ORDERED: OXYCODONE HCL 30 MG PO SCH (15:30)
[2023-07-22] MEDS ORDERED: ALBUTEROL SULF 2.5 MG/0.5ML(0.5%) NEB SOLN NEB PRN (15:45)
[2023-07-22] MEDS ORDERED: IPRATROPIUM BROM 0.5 MG/2.5ML INH SOL NEB PRN (15:45)
[2023-07-22 16:06] VITALS: BP 146/92; PULSE 85; RESP 20; TEMP 98.9; O2SAT 99
[2023-07-22] MEDS: ONDANSETRON HCL 4 MG/2 ML VIAL IV PRN (16:34)
[2023-07-22] MEDS: MORPHINE SULFATE INJ 2 MG/ml SYRG IV PRN (16:34)
[2023-07-22 16:44] LABS: Erythrocyte Sedimentation Rate 13 mm/hr (0-20)
[2023-07-22 22:10] VITALS: PULSE 80; RESP 15; O2SAT 98
[2023-07-22] MEDS: metroNIDAZOLE 500 MG TAB PO SCH (22:17)
[2023-07-22 22:48] VITALS: PULSE 74; RESP 17; O2SAT 97
[2023-07-22 22:55] VITALS: BP 129/78; PULSE 74; RESP 17; TEMP 98.3; O2SAT 95
[2023-07-23] VITALS (9 sets, daily range): BP systolic 116–142; BP diastolic 73–82; PULSE 62–83; RESP 18; TEMP 97.6–98.7; O2SAT 94–97
[2023-07-23] MEDS: HYDROcodone-ACET 5/325MG TAB PO PRN (05:17)
[2023-07-23 07:42] LABS: Basophils # (auto) 0 10 ^3/uL (0-0.2); Basophils % (auto) 0.3 % (0.0-2.0); Eosinophils # (auto) 0.3 10 ^3/uL (0-0.8); Hematocrit 39.4 % (41.0-53.0); Hemoglobin 12.8 g/dL (13.5-17.5); Lymphocytes # (auto) 2.4 10 ^3/uL (0.4-5.4); Lymphocytes % (auto) 31.8 % (10.0-50.0); Mean Corpuscular Hemoglobin 27.6 pg (28.0-32.0); Mean Corpuscular Hgb Conc. 32.5 g/dL (32.0-36.0); Monocytes # (auto) 0.8 10 ^3/uL (0-1.3); Monocytes % (auto) 10.1 % (0.0-12.0); Neutrophils % (auto) 53.8 % (37.0-80.0); Nucleated Red Blood Cells % 0.1 %; Red Blood Cells 4.64 10^6/uL (4.5-5.90); Red Cell Distribution Width 13.6 % (11.8-14.3); White Blood Cell 7.5 10^3/uL (4.4-10.8)
[2023-07-23 08:03] LABS: Alanine Aminotransferase 13 U/L (7-40); Alkaline Phosphatase 81 U/L (46-116); Anion Gap 2 (5-15); BUN/Creatinine Ratio 8.6 (10.0-20.0); Blood Urea Nitrogen 7 mg/dL (9-23); Calcium 9.4 mg/dL (8.5-10.1); Carbon Dioxide 28 mmol/L (20-30); Chloride 108 mmol/L (98-107); Glucose 97 mg/dL (74-106); Potassium 3.8 mmol/L (3.5-5.1); Sodium 138 mmol/L (136-145)
[2023-07-23 08:04] LABS: Aspartate Aminotransferase 21 U/L (13-40); Bilirubin, Total 0.4 mg/dL (0.2-1.0); Total Protein 6.9 g/dL (5.7-8.2)
[2023-07-23] MEDS: levoFLOXacin 500 MG TAB PO SCH (10:16)
[2023-07-23] MEDS: PANTOPRAZOLE 40 MG/10 ML VIAL INJ IV SCH (10:16)
[2023-07-23] MEDS: DICYCLOMINE HCL 10 MG CAP PO PRN (13:48)
[2023-07-24 05:00] VITALS: BP 124/84; PULSE 74; RESP 18; TEMP 97.9; O2SAT 97
[2023-07-24 09:00] VITALS: BP 134/86; PULSE 73; RESP 18; TEMP 98.4; O2SAT 96
[2023-07-24 09:14] VITALS: O2SAT 94
[2023-07-24] MEDS: MORPHINE SULFATE INJ 2 MG/ml SYRG IV PRN ×2 (12:22→19:47)
[2023-07-24 13:22] VITALS: BP 123/83; PULSE 73; RESP 17; TEMP 97.9; O2SAT 93
[2023-07-24] MEDS: PIPERACILLIN-TAZOB 3.375GM 100 ML IV SCH (14:48)
[2023-07-24 17:19] VITALS: BP 100/70; PULSE 79; RESP 20; TEMP 98.4; O2SAT 97
[2023-07-24 21:00] VITALS: BP 118/71; PULSE 74; RESP 20; TEMP 98.5; O2SAT 97
[2023-07-25] VITALS (8 sets, daily range): BP systolic 95–121; BP diastolic 64–81; PULSE 69–80; RESP 15–20; TEMP 97.7–98.4; O2SAT 94–98
[2023-07-25 14:26] LABS: Basophils # (auto) 0.1 10 ^3/uL (0-0.2); Basophils % (auto) 0.7 % (0.0-2.0); Eosinophils # (auto) 0.6 10 ^3/uL (0-0.8); Eosinophils % (auto) 7.8 % (0.0-7.0); Hematocrit 43.4 % (41.0-53.0); Hemoglobin 14.2 g/dL (13.5-17.5); Lymphocytes % (auto) 38.6 % (10.0-50.0); Mean Corpuscular Hemoglobin 28.1 pg (28.0-32.0); Mean Corpuscular Hgb Conc. 32.7 g/dL (32.0-36.0); Monocytes # (auto) 0.7 10 ^3/uL (0-1.3); Monocytes % (auto) 9.6 % (0.0-12.0); Neutrophils # (auto) 3.4 10 ^3/uL (1.6-8.6); Neutrophils % (auto) 43.3 % (37.0-80.0); Red Blood Cells 5.04 10^6/uL (4.5-5.90); Red Cell Distribution Width 13.9 % (11.8-14.3); White Blood Cell 7.8 10^3/uL (4.4-10.8)
[2023-07-25 14:28] LABS: Chloride 106 mmol/L (98-107); Potassium 3.8 mmol/L (3.5-5.1); Sodium 138 mmol/L (136-145)
[2023-07-25 14:29] LABS: Anion Gap 6 (5-15); Calcium 9.7 mg/dL (8.7-10.4); Carbon Dioxide 26 mmol/L (20-30)
[2023-07-25 14:34] LABS: BUN/Creatinine Ratio 9.4 (10.0-20.0); Blood Urea Nitrogen 9 mg/dL (9-23); Glucose 127 mg/dL (74-106)
[2023-07-25] MEDS: GABAPENTIN 300 MG CAP PO SCH (23:29)
[2023-07-26] VITALS (7 sets, daily range): BP systolic 97–110; BP diastolic 61–77; PULSE 67–97; RESP 17–20; TEMP 97.8–98.8; O2SAT 93–96
[2023-07-27 01:00] VITALS: BP 123/82; PULSE 72; RESP 18; TEMP 98.4; O2SAT 96
[2023-07-27 05:00] VITALS: BP 127/82; PULSE 70; RESP 16; TEMP 98.6; O2SAT 97
[2023-07-27 09:00] VITALS: BP 115/71; PULSE 80; RESP 18; TEMP 98.4; O2SAT 94
[2023-07-27] MEDS ORDERED: HYDR-4798 PO ×2 (09:48)
[2023-07-27] MEDS ORDERED: LEVO500T91 PO ×2 (09:48)
[2023-07-27] MEDS ORDERED: METR-344 PO ×2 (09:48)
[2023-07-27 12:29] VITALS: BP 119/77; PULSE 80; RESP 16; TEMP 97.8; O2SAT 98
== END 2023-07-27 16:30 | disposition home or self-care (01) | DRG 244 ==
LOC: ER 09:08 → EDUNIT# 09:08 → OVERFLOW 14:00 → CENTRAL 22:21
PROVIDERS: ADMIT Nurse Practitioner Family; ATTEND Internal Medicine
DX: K57.32 Diverticulitis of large intestine without perforation or abscess without bleeding (principal); J44.1 Chronic obstructive pulmonary disease with (acute) exacerbation; G89.29 Other chronic pain; E11.9 Type 2 diabetes mellitus without complications; Z95.0 Presence of cardiac pacemaker; Z91.018 Allergy to other foods; Z98.1 Arthrodesis status; Z87.19 Personal history of other diseases of the digestive system
CPT/HCPCS: 36415; 74176; 80048; 80053; 85025; 85652; 86141; 87081; 96372; 96374; 96375; C9113; G0378; J2405; J2543

== ENCOUNTER 2024-01-31 09:31 | Inpatient (IN) | payer MEDICARE, MEDICAID ==
[~2024-01-31] VITALS: Ht 180.3 cm; Wt 75.0 kg
[~2024-01-31 09:31] MED LIST changes: +HYDR-4798 PO
--- NOTE | 2024-01-31 09:56 | ED.PDOC ---
HPI Comments 68 year old male RENATA presents to the ED with chief complaint of chest pain. Patient reports that he had woke up this morning and began to experience left sided chest pain that radiates to the left shoulder. EMS relays that they provided 324mg of ASA to the patient with improvement of his chest pain. Patient denies any N/V/D, dizziness, SOB, cough, fever, or headache. Time Seen by MD: 09:51 Primary Care Provider: Clau Reviewed Notes: Nurses Notes, Medications, Allergies Allergies: Coded Allergies: Tomato (Unverified Allergy, Severe, 07/22/23) Home Meds Active Scripts Hydrocodone-Acetaminophen (Hydrocodone Bitartrate/AC 10-325 mg) 1 Tab Tab, 1 TAB PO QID PRN, #20 TAB Prov:JORGE A HAQUE MD 07/27/23 Levofloxacin Hemihydrate (LEVAQUIN 500 MG) 500 Mg Tab, 1 TAB PO DAILY, #10 TAB Prov:JORGE A HAQUE MD 07/27/23 Metronidazole (Flagyl) 500 Mg Tab, 1 TAB PO TID, #30 TAB Prov:JORGE A HAQUE MD 07/27/23 Levofloxacin Hemihydrate (LEVAQUIN 500 MG) 500 Mg Tab, 1 TAB PO DAILY, #7 TAB Prov:SOPHIA SANTOYO MD 07/20/23 Metronidazole (Flagyl) 500 Mg Tab, 1 TAB PO TID for 7 Days, #21 TAB Prov:SOPHIA SANTOYO MD 07/20/23 Reported Medications Gabapentin (Gabapentin) 600 Mg Tab, 1 TAB PO Q8H 01/31/24 Oxycodone HCl (Oxycontin) 30 Mg Tab, 30 MG PO PRN, TAB 04/01/17 Discontinued Reported Medications Alprazolam (Xanax) 1 Mg Tab, 1 MG PO, TAB 04/01/17 Information Source: Patient Mode of Arrival: Ambulatory Severity: Moderate Timing: Hours Duration: Since onset Prehospital treatment: None Location: Chest (L) Radiation: Shoulder (L) Quality: Aching Onset: At Rest Cardiac Risk Factors: Smoker PE Risk Factors: None Past Medical History PAST MEDICAL HISTORY: COPD Surgical History: Pacemaker Surgical History (Other): Hip surgery Family History Family History: Reviewed,noncontributory to illness, Unknown Social History Smoker: Quit Less Than 1 Year, Cigarettes Alcohol: Denies ETOH Use Drugs: Denies Drug Use Lives In: Home Constitutional: denies: chills, diaphoresis, fatigue, fever, malaise, sweats, weakness, others EENTM: denies: blurred vision, double vision, ear bleeding, ear discharge, ear drainage, ear pain, ear ringing, eye pain, eye redness, hearing loss, mouth pain, mouth swelling, nasal discharge, nose bleeding, nose congestion, nose pain, photophobia, tearing, throat pain, throat swelling, voice changes, others Respiratory: denies: cough, hemoptysis, orthopnea, SOB at rest, shortness of breath, SOB with excertion, stridor, wheezing, others Cardiovascular: reports: chest pain, left arm pain; denies: dizzy spells, diaphoresis, Dyspnea on exertion, edema, irregular heart beat, lightheadedness, palpitations, PND, syncope, others Gastrointestinal: denies: abdomen distended, abdominal pain, blood streaked bowels, constipated, diarrhea, dysphagia, difficulty swallowing, hematemesis, melena, nausea, poor appetite, poor fluid intake, rectal bleeding, rectal pain, vomiting, others Genitourinary: denies: burning, dysuria, flank pain, frequency, hematuria, incontinence, penile discharge, penile sore, pain, testicle pain, testicle swelling, urgency, others Neurological: denies: dizziness, fainting, headache, left sided numbness, left sided weakness, numbness, paresthesia, pre-existing deficit, right sided numbness, right sided weakness, seizure, speech problems, tingling, tremors, weakness, others Musculoskeletal: denies: back pain, gout, joint pain, joint swelling, muscle pain, muscle stiffness, neck pain, others Integumetry: denies: bruises, change in color, change in hair/nails, dryness, laceration, lesions, lumps, rash, wounds, others Allergic/Immunocompromised: denies: Difficulty Healing, Frequent Infections, Hives, Itching, others Hematologic/Lymphatic: denies: anemia, blood clots, easy bleeding, easy bruising, swollen glands, others Endocrine: denies: excessive hunger, excessive sweating, excessive thirst, excessive urination, flushing, intolerance to cold, intolerance to heat, unexplained weight gain, unexplained weight loss, others Psychiatric: denies: anxiety, bipolar disorder, depression, hopeless, panic disorder, schizophrenia, sleepless, suicidal, others All Other Systems: Reviewed and Negative Physical Exam General Appearance: Moderate Distress, Normal HEENT: Normal ENT Inspection, PERRL/EOMI Neck: Full Range of Motion, Non-Tender, Normal, Normal Inspection Respiratory: Chest Non-Tender, Lungs Clear, No Accessory Muscle Use, No Respiratory Distress, Normal Breath Sounds Cardiovascular: No Edema, No JVD, No Murmur, No Gallop, Normal Peripheral Pu lses, Regular Rate/Rhythm Breast Exam: Deferred Gastrointestinal: No Organomegaly, Non Tender, No Pulsatile Mass, Normal Bowel Sounds, Soft Genitalia: Deferred Pelvic: Deferred Rectal: Deferred Extremities: No calf tenderness, Normal capillary refill, Normal inspection, Normal range of motion, Non-tender, No pedal edema Musculoskeletal : Apperance: Normal Neurologic: Alert, elementary tutor II-XII nml as Tested, No Motor Deficits, Normal Affect, Normal Mood, No Sensory Deficits Cerebellar Function: NOT DONE Reflexes: NOT DONE Skin: Dry, Normal Color, Warm Peripheral Pulses: 3+ Radial (R), 3+ Radial (L) Lymphatic: No Adenopathy Was a procedure done? Was a procedure done?: No CP Differential Dx Differential Diagnosis: A-fib, A-Flutter, Angina, Anxiety / Panic Attack, Atrial Dysrhythmia, Electrolyte Disorder X-Ray, Labs, Meds, VS Vital Signs Date Time Temp Pulse Resp B/P (MAP) Pulse Ox O2 Delivery O2 Flow Rate FiO2 01/31/24 14:00 77 17 109/76 (87) 99 01/31/24 12:00 79 17 124/80 (95) 99 01/31/24 10:33 78 01/31/24 10:33 93 17 99 Room Air* 0 21 01/31/24 10:30 98.2 95 17 126/81 (96) 99 98.2 01/31/24 10:08 97.7 79 18 134/81 (98) 96 01/31/24 09:38 75 Lab Test 01/31/24 11:00 01/31/24 09:49 Range/Units Troponin I High Sensitivity 3 L 3 L </=54 ng/L White Blood Count 7.4 4.4-10.8 10^3/uL Red Blood Count 4.74 4.5-5.90 10^6/uL Hemoglobin 13.2 L 13.5-17.5 g/dL Hematocrit 41.3 41.0-53.0 % Mean Corpuscular Volume 87.2 80.0-100.0 fL Mean Corpuscular Hemoglobin 27.8 L 28.0-32.0 pg Mean Corpuscular Hemoglobin Concent 31.9 L 32.0-36.0 g/dL Red Cell Distribution Width 14.9 H 11.8-14.3 % Platelet Count 304 140-450 10^3/uL Mean Platelet Volume 7.0 6.9-10.8 fL Neutrophils (%) (Auto) 40.0 37.0-80.0 % Lymphocytes (%) (Auto) 42.8 10.0-50.0 % Monocytes (%) (Auto) 8.8 0.0-12.0 % Eosinophils (%) (Auto) 7.8 H 0.0-7.0 % Basophils (%) (Auto) 0.6 0.0-2.0 % Neutrophils # (Auto) 3.0 1.6-8.6 10 ^3/uL Lymphocytes # (Auto) 3.2 0.4-5.4 10 ^3/uL Monocytes # (Auto) 0.6 0-1.3 10 ^3/uL Eosinophils # (Auto) 0.6 0-0.8 10 ^3/uL Basophils # (Auto) 0 0-0.2 10 ^3/uL Nucleated Red Blood Cells 0.2 % Sodium Level 141 136-145 mmol/L Potassium Level 4.0 3.5-5.1 mmol/L Chloride Level 111 H 98-107 mmol/L Carbon Dioxide Level 24 20-31 mmol/L Anion Gap 6 5-15 Blood Urea Nitrogen 9 9-23 mg/dL Creatinine 0.89 0.700-1.30 mg/dL Glomerular Filtration Rate Calc 93 >90 mL/min BUN/Creatinine Ratio 10.1 10.0-20.0 Serum Glucose 93 74-106 mg/dL Calcium Level 9.8 8.7-10.4 mg/dL Lipase 38 12-53 U/L Thyroid Stimulating Hormone (TSH) 0.46 L 0.55-4.78 uIU/mL Patient alert. Complaining of chest pain. Pacemaker in place. Vitals stable. Answering all questions. Was given aspirin in the field. Continues to have chest pain. Radiate to the arm. He was sitting down when he had the chest pain. Echocardiogram. Stress test. Reviewed his previous visit. Explained to the patient. Continue cardiac monitoring. EKG reviewed does not show any acute changes. Chest x-ray reviewed does not show any acute changes. Chest XR: FINDINGS: Lines and Tubes: left sided pacemker Lungs: No focal consolidation. Pleura: No effusion. No pneumothorax. Cardiomediastinal contours: Unremarkable Bones: No acute osseous abnormality. IMPRESSION: No acute cardiopulmonary disease. Images Reviewed?: Images reviewed and evaluated by me Time of 1ST Reevaluation: 10:51 Reevaluation 1ST: Unchanged Patient Education/Counseling: Diagnosis, Treatment Family Education/Counseling: No Family Present Departure 1 Departure Time of Disposition: 10:02 Impression: Primary Impression: Chest pain of unknown etiology Disposition: ADMITTED INPATIENT Admit to: Med Surg Condition: Guarded Critical Care Note Critical Care Time?: Yes (90 min-critical care time only) Stability Stability form required: No Heart Score Heart Score: Heart Score Response (Comments) Value History Highly Suspicious 2 EKG Normal 0 Age >65 2 Risk Factors 1 or 2 risk factors 1 Troponin Normal limit 0 Total 5 I personally scribed for BIENVENIDO GONZALEZ MD ([email or web address]) on 01/31/24 at 09:56. Electronically submitted by Mekhi Landry ([email or web address]). I personally scribed for BIENVENIDO GONZALEZ MD ([email or web address]) on 01/31/24 at 10:59. Electronically submitted by Mekhi Landry ([email or web address]). BIENVENIDO GONZALEZ MD Jan 31, 2024 09:56
[2024-01-31 10:07] LABS: Basophils # (auto) 0 10 ^3/uL (0-0.2); Basophils % (auto) 0.6 % (0.0-2.0); Eosinophils # (auto) 0.6 10 ^3/uL (0-0.8); Eosinophils % (auto) 7.8 % (0.0-7.0); Hematocrit 41.3 % (41.0-53.0); Hemoglobin 13.2 g/dL (13.5-17.5); Lymphocytes # (auto) 3.2 10 ^3/uL (0.4-5.4); Lymphocytes % (auto) 42.8 % (10.0-50.0); Mean Corpuscular Hemoglobin 27.8 pg (28.0-32.0); Mean Corpuscular Hgb Conc. 31.9 g/dL (32.0-36.0); Mean Corpuscular Volume 87.2 fL (80.0-100.0); Monocytes # (auto) 0.6 10 ^3/uL (0-1.3); Monocytes % (auto) 8.8 % (0.0-12.0); Nucleated Red Blood Cells % 0.2 %; Platelet Count (auto) 304 10^3/uL (140-450); Red Blood Cells 4.74 10^6/uL (4.5-5.90); Red Cell Distribution Width 14.9 % (11.8-14.3); White Blood Cell 7.4 10^3/uL (4.4-10.8)
[2024-01-31 10:11] LABS: Sodium 141 mmol/L (136-145)
[2024-01-31 10:12] LABS: Anion Gap 6 (5-15); Carbon Dioxide 24 mmol/L (20-31)
[2024-01-31 10:13] LABS: Calcium 9.8 mg/dL (8.7-10.4)
[2024-01-31 10:17] LABS: BUN/Creatinine Ratio 10.1 (10.0-20.0); Blood Urea Nitrogen 9 mg/dL (9-23); Glucose 93 mg/dL (74-106)
[2024-01-31 10:33] VITALS: PULSE 93; RESP 17; O2SAT 99
--- NOTE | 2024-01-31 10:36 | DVH ---
CHEST RADIOGRAPH Indication: DYSPNEA Technique: Single frontal view of the chest was obtained Comparison: XY CHEST PORTABLE on DOS: 07/17/23, XY CHEST XRAY 1 VIEW on DOS: 12/16/22 FINDINGS: Lines and Tubes: left sided pacemker Lungs: No focal consolidation. Pleura: No effusion. No pneumothorax. Cardiomediastinal contours: Unremarkable Bones: No acute osseous abnormality. IMPRESSION: No acute cardiopulmonary disease.
[2024-01-31 10:37] LABS: Chloride 111 mmol/L (98-107)
[2024-01-31] MEDS ORDERED: MORPHINE SULFATE INJ 2 MG/ml SYRG IV PRN (14:15)
[2024-01-31] MEDS ORDERED: ONDANSETRON HCL 4 MG/2 ML VIAL IV PRN (14:15)
[2024-01-31] MEDS ORDERED: NITROGLYCERIN 0.4 MG SL TAB SL PRN ×2 (14:15)
[2024-01-31] MEDS ORDERED: ACETAMINOPHEN 325 MG TAB PO PRN (14:15)
[2024-01-31] MEDS ORDERED: MORPHINE SULFATE 4 MG/ML SYR/VIAL IV PRN (14:15)
[2024-01-31] MEDS ORDERED: GABA-339 PO (14:18)
--- NOTE | 2024-01-31 14:31 | DVHHP2 ---
History of Present Illness Reason for Visit: chest pain History of Present Illness Claudio Tanner is a 68-year-old male with past medical history of COPD, spinal cord stimulator placed in 2021, chronic back pain, pacemaker placed in 2018 and left hip surgery done in December of 2023 who presents to the ED today for left- sided chest pain that radiates to the left shoulder x1 day. Patient states that he was going to the bathroom when he came back to sit in bed suddenly developed sharp constant chest pain 04/19. Patient states that breathing makes it worse an d there are no alleviating factors aside from the aspirin that he took in the ED. patient reports that he smokes half a pack of cigarettes per day, drinks occasionally beers, and denies illicit drug use. Patient reports that he also had left hip surgery and is on Xarelto in December of 2023. Patient denies shortness of breath fever, chills, nausea, vomiting, diarrhea, lightheadedness, and dizziness. Cardiovascular: Other (PM placed in 2018) Pulmonary: COPD Past Surgical History: Other (left hip sx in 12/2023) Past Surgical History Spinal cord stimulator placed in 2021 Family History: Cancer, DM, Other (Prostate cancer sibling, both mom and dad cancer patient unsure what, and grandparents diabetes) Smoke: <1 pack per day ALCOHOL: occassional Drugs: None Lives: with Family Domestic Violence: Neg Review of Systems Constitutional: No: Fever, Chills, Sweats, Weakness, Malaise, Other Eyes: No: Pain, Vision change, Conjunctivae inflammation, Eyelid inflammation, Other, Redness ENT: No: Ear pain, Ear discharge, Nose pain, Nose discharge, Nose congestion, Mouth pain, Mouth swelling, Throat pain, Throat swelling, Other Respiratory: No: Cough, Dry, Shortness of breath, SOB with excertion, Wheezing, Hemoptysis, Pleuritic Pain, Sputum, Wheezing, Other Cardiovascular: Chest Pain; No: Palpitations, Orthopnea, Paroxysmal Noc. Dyspnea, Edema, Lt Headedness, Other Gastrointestinal: No: Nausea, Vomiting, Abdominal Pain, Diarrhea, Constipation, Melena, Hematochezia, Other Genitourinary: No Dysuria, No Frequency, No Incontinence, No Hematuria, No Retention, No Other Musculoskeletal: No: other, neck pain, shoulder pain, arm pain, back pain, hand pain, leg pain, foot pain Skin: No: Rash, Lesions, Jaundice, Bruising, Other Neurological: No: Weakness, Numbness, Incoordination, Change in speech, Confusion, Seizures, Other Allergies: Coded Allergies: Tomato (Unverified Allergy, Severe, 07/22/23) Medications Current Medications Medications Dose Ordered Sig/Gian Route Start Time Stop Time Status Last Admin Dose Admin Aspirin 81 mg DAILY PO 02/01/24 10:00 UNV Atorvastatin Calcium 40 mg HS PO 01/31/24 22:00 UNV Morphine Sulfate 2 mg Q30MP PRN IV 01/31/24 14:15 UNV Acetaminophen 650 mg Q6HP PRN PO 01/31/24 14:15 UNV Nitroglycerin 0.4 mg Q5MINP PRN SL 01/31/24 14:15 UNV Ondansetron HCl 4 mg Q4HP PRN IV 01/31/24 14:15 UNV Nitroglycerin 0.4 mg Q5MINP PRN SL 01/31/24 14:15 UNV Morphine Sulfate 2 mg Q30M PRN IV 01/31/24 14:15 UNV Enoxaparin Sodium 40 mg DAILY SC 02/01/24 10:00 UNV Exam Vital Signs Vital Signs Date Time Temp Pulse Resp B/P (MAP) Pulse Ox O2 Delivery O2 Flow Rate FiO2 01/31/24 14:00 77 17 109/76 (87) 99 01/31/24 10:33 Room Air* 0 21 01/31/24 10:30 98.2 98.2 General Appearance: Alert, Oriented X3, Cooperative, No acute distress HEENT: Atraumatic, PERRLA, EOMI, Mucous membr. moist/pink Respiratory: Clear to auscultation, Normal air movement Cardiovascular: Regular rate, Normal S1, Normal S2, No murmurs Abdominal: Normal bowel sounds, Soft, No tenderness, No hepatospenomegaly, No masses Extremities: No clubbing, No cyanosis, No edema, Normal pulses, No tenderness/swelling Skin: No rashes, No breakdown, No significant lesion Neuro: Normal gait, Normal speech, Strength at 5/5 X4 ext, Normal tone, Sensation intact Psych/Mental Status: Mental status NL, Mood NL Labs/Xrays Labs Test 01/31/24 11:00 12/21/24 09:49 Range/Units Troponin I High Sensitivity 3 L </=54 ng/L White Blood Count 7.4 4.4-10.8 10^3/uL Red Blood Count 4.74 4.5-5.90 10^6/uL Hemoglobin 13.2 L 13.5-17.5 g/dL Hematocrit 41.3 41.0-53.0 % Mean Corpuscular Volume 87.2 80.0-100.0 fL Mean Corpuscular Hemoglobin 27.8 L 28.0-32.0 pg Mean Corpuscular Hemoglobin Concent 31.9 L 32.0-36.0 g/dL Red Cell Distribution Width 14.9 H 11.8-14.3 % Platelet Count 304 140-450 10^3/uL Mean Platelet Volume 7.0 6.9-10.8 fL Neutrophils (%) (Auto) 40.0 37.0-80.0 % Lymphocytes (%) (Auto) 42.8 10.0-50.0 % Monocytes (%) (Auto) 8.8 0.0-12.0 % Eosinophils (%) (Auto) 7.8 H 0.0-7.0 % Basophils (%) (Auto) 0.6 0.0-2.0 % Neutrophils # (Auto) 3.0 1.6-8.6 10 ^3/uL Lymphocytes # (Auto) 3.2 0.4-5.4 10 ^3/uL Monocytes # (Auto) 0.6 0-1.3 10 ^3/uL Eosinophils # (Auto) 0.6 0-0.8 10 ^3/uL Basophils # (Auto) 0 0-0.2 10 ^3/uL Nucleated Red Blood Cells 0.2 % Sodium Level 141 136-145 mmol/L Potassium Level 4.0 3.5-5.1 mmol/L Chloride Level 111 H 98-107 mmol/L Carbon Dioxide Level 24 20-31 mmol/L Anion Gap 6 5-15 Blood Urea Nitrogen 9 9-23 mg/dL Creatinine 0.89 0.700-1.30 mg/dL Glomerular Filtration Rate Calc 93 >90 mL/min BUN/Creatinine Ratio 10.1 10.0-20.0 Serum Glucose 93 74-106 mg/dL Calcium Level 9.8 8.7-10.4 mg/dL CHEST RADIOGRAPH Indication: DYSPNEA Technique: Single frontal view of the chest was obtained Comparison: XY CHEST PORTABLE on DOS: 07/17/23, XY CHEST XRAY 1 VIEW on DOS: 12/16/22 FINDINGS: Lines and Tubes: left sided pacemker Lungs: No focal consolidation. Pleura: No effusion. No pneumothorax. Cardiomediastinal contours: Unremarkable Bones: No acute osseous abnormality. IMPRESSION: No acute cardiopulmonary disease. Assessment/Plan Assessment/Plan Assessment/Plan: Atypical chest pain r/o ACS Hx of PM 2018 ekg noted cxr noted labs echo acs protocol asa statin lovenox ekg am labs am trend trop trop x 2 negative cards cx ua uds lipase tsh COPD resp txs prn Chronic back pain Spinal cord stimulator 2021 monitor unable to have MRI Hx of hip sx 12/2023 hold xarelto lovenox Tobacco use Counseled patient on smoking cessation Offer nicotine patch declined FEN/PPX cardiac diet hl DVT ppx - lovenox PUD ppx not indicated no hx of GERD or PUD Home medications reconciled Discussed plan of care with patient and nurse Admit to tele Plan discussed with: Patient My Orders Orders - CAPRI HEBERT Procedure Category Date Status Time Echo 2d Mode Cardiac US 01/31/24 Logged DOP 13:49 * Cardiology Consult CONS 01/31/24 Transmitted 14:04 Lipase LAB 01/31/24 Logged 14:04 Thyroid Stimulating LAB 01/31/24 Logged Hormone 14:04 Admit ADMIT 01/31/24 Transmitted 14:04 Code Status CODE 01/31/24 Transmitted 14:04 Vital Signs LIZETTE 01/31/24 In Process 14:04 Electromechanical Equipment Assembler LIZETTE 01/31/24 In Process 14:04 Cardiac DIET 01/31/24 Transmitted Diet-2gna,Lofat,Lochol Dinner Aspirin Tablet PHA 02/01/24 Logged 10:00 Atorvastatin (Lipitor) PHA 01/31/24 Logged 22:00 Morphine Sulfate PHA 01/31/24 Logged Injection 14:15 Acetaminophen Tablet PHA 01/31/24 Logged (Tylenol Tablet) 14:15 Complete Blood Count LAB 02/01/24 Verified 04:00 Comprehensive LAB 02/01/24 Verified Metabolic Panel 04:00 Education - Smoking LIZETTE 01/31/24 In Process Cessation 14:04 Nitroglycerin PHA 01/31/24 Logged Sublingual (Ntrostat 14:15 Ondansetron Hcl PHA 01/31/24 Logged (Zofran) 14:15 Electrocardigram EKG 02/01/24 Logged 04:00 Cardiac LIZETTE 01/31/24 In Process Rehabilitation - Outpa Nitroglycerin PHA 01/31/24 Logged Sublingual (Ntrostat 14:15 Morphine Sulfate PHA 01/31/24 Logged Injection 14:15 Stat Ekg For Chest LIZETTE 01/31/24 In Process Pain 14:04 Notify Md Of Changes BANNER 01/31/24 In Process From Base 14:04 Sheet Turner For LIZETTE 01/31/24 In Process 24 Hours 14:04 Emergency Dysrhythmia BANNER 01/31/24 In Process Protocol 14:04 Rhythm Strips Once BANNER 01/31/24 In Process Every Shift 14:04 Oxygen By Nasal RT 01/31/24 Transmitted Cannula 14:04 Enoxaparin Sodium PHA 02/01/24 Logged (Lovenox) 10:00 Date of Service: Jan 31, 2024 Billing Provider: CAPRI HEBERT Common Visit Codes: [id number] INP/OBS CARE (MOD) CAPRI HEBERT Jan 31, 2024 14:31
[2024-01-31 15:06] LABS: Opiate Scree,Urine Neg (NEGATIVE)
[2024-01-31 15:08] LABS: Amphetamine Screen, Urine Neg (NEGATIVE); Barbiturate Scree,Urine Neg (NEGATIVE); Benzodiazephine Screen, Urine Neg (NEGATIVE); Cannabinoid Screen, Urine Neg (NEGATIVE); Cocaine Screen, Urine Neg (NEGATIVE); Phencyclidine Screen, Urine Neg (NEGATIVE)
[2024-01-31] MEDS: HYDROcodone-ACET 10/325MG TAB PO PRN (17:06)
--- NOTE | 2024-01-31 18:50 | ECG ---
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
--- NOTE | 2024-01-31 18:51 | ECG ---
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
[2024-01-31 19:30] VITALS: PULSE 76; RESP 16; O2SAT 99
[2024-01-31] MEDS: ATORVASTATIN 20 MG TAB PO SCH (21:34)
[2024-01-31 22:46] VITALS: BP 112/79; PULSE 70; RESP 18; TEMP 97.9; O2SAT 98
[2024-02-01] MEDS ORDERED: OXYC30TA PO (02:20)
[2024-02-01 05:00] VITALS: BP 103/56; PULSE 69; RESP 18; TEMP 98.3; O2SAT 97
[2024-02-01 07:34] LABS: Basophils # (auto) 0 10 ^3/uL (0-0.2); Basophils % (auto) 0.5 % (0.0-2.0); Eosinophils # (auto) 0.7 10 ^3/uL (0-0.8); Eosinophils % (auto) 9.5 % (0.0-7.0); Hematocrit 37.3 % (41.0-53.0); Lymphocytes # (auto) 2.9 10 ^3/uL (0.4-5.4); Lymphocytes % (auto) 41.7 % (10.0-50.0); Mean Corpuscular Hemoglobin 27.5 pg (28.0-32.0); Mean Corpuscular Hgb Conc. 32.1 g/dL (32.0-36.0); Mean Corpuscular Volume 85.8 fL (80.0-100.0); Monocytes # (auto) 0.6 10 ^3/uL (0-1.3); Monocytes % (auto) 8.5 % (0.0-12.0); Neutrophils # (auto) 2.8 10 ^3/uL (1.6-8.6); Neutrophils % (auto) 39.8 % (37.0-80.0); Nucleated Red Blood Cells % 0.1 %; Platelet Count (auto) 291 10^3/uL (140-450); Red Blood Cells 4.35 10^6/uL (4.5-5.90); Red Cell Distribution Width 14.5 % (11.8-14.3); White Blood Cell 7.1 10^3/uL (4.4-10.8)
[2024-02-01 07:45] LABS: Alanine Aminotransferase 12 U/L (7-40); Albumin 3.5 g/dL (3.2-4.8); Alkaline Phosphatase 115 U/L (46-116); Anion Gap 7 (5-15); Aspartate Aminotransferase 18 U/L (13-40); BUN/Creatinine Ratio 14.6 (10.0-20.0); Bilirubin, Total 0.3 mg/dL (0.2-1.0); Blood Urea Nitrogen 12 mg/dL (9-23); Calcium 9.2 mg/dL (8.7-10.4); Carbon Dioxide 26 mmol/L (20-31); Glucose 88 mg/dL (74-106); Potassium 3.9 mmol/L (3.5-5.1); Sodium 142 mmol/L (136-145); Total Protein 6.5 g/dL (5.7-8.2)
[2024-02-01 07:51] LABS: Chloride 109 mmol/L (98-107)
[2024-02-01 08:00] VITALS: PULSE 76; RESP 18; O2SAT 97
[2024-02-01 09:00] VITALS: BP 109/68; PULSE 73; RESP 16; TEMP 98.8; O2SAT 96
[2024-02-01] MEDS: ENOXAPARIN SOD 40 MG/0.4 ML SYRINGE SC SCH (09:08)
[2024-02-01] MEDS: ASPirin 81 mg TAB PO SCH (09:08)
[2024-02-01 12:43] VITALS: BP 113/73; PULSE 79; RESP 17; TEMP 97.3; O2SAT 98
[2024-02-01 17:00] VITALS: BP 115/74; PULSE 72; RESP 16; TEMP 97.8; O2SAT 98
--- NOTE | 2024-02-01 22:14 | DVHDS2 ---
Discharge Summary Date of Admission Jan 31, 2024 at 14:04 Date of Discharge: Feb 01, 2024 Admitting Diagnosis Atypical chest pain r/o ACS COPD Chronic back pain Spinal cord stimulator 2021 Hx of hip sx 12/2023 Tobacco use Labs/Diagnostic Data: Laboratory Results Test 02/01/24 06:11 01/31/24 14:20 01/31/24 11:00 01/31/24 09:49 White Blood Count 7.1 10^3/uL (4.4-10.8) Red Blood Count 4.35 10^6/uL (4.5-5.90) Hemoglobin 12.0 g/dL (13.5-17.5) Hematocrit 37.3 % (41.0-53.0) Mean Corpuscular Volume 85.8 fL (80.0-100.0) Mean Corpuscular Hemoglobin 27.5 pg (28.0-32.0) Mean Corpuscular Hemoglobin Concent 32.1 g/dL (32.0-36.0) Red Cell Distribution Width 14.5 % (11.8-14.3) Platelet Count 291 10^3/uL (140-450) Mean Platelet Volume 6.9 fL (6.9-10.8) Neutrophils (%) (Auto) 39.8 % (37.0-80.0) Lymphocytes (%) (Auto) 41.7 % (10.0-50.0) Monocytes (%) (Auto) 8.5 % (0.0-12.0) Eosinophils (%) (Auto) 9.5 % (0.0-7.0) Basophils (%) (Auto) 0.5 % (0.0-2.0) Neutrophils # (Auto) 2.8 10 ^3/uL (1.6-8.6) Lymphocytes # (Auto) 2.9 10 ^3/uL (0.4-5.4) Monocytes # (Auto) 0.6 10 ^3/uL (0-1.3) Eosinophils # (Auto) 0.7 10 ^3/uL (0-0.8) Basophils # (Auto) 0 10 ^3/uL (0-0.2) Nucleated Red Blood Cells 0.1 % Sodium Level 142 mmol/L (136-145) Potassium Level 3.9 mmol/L (3.5-5.1) Chloride Level 109 mmol/L (98-107) Carbon Dioxide Level 26 mmol/L (20-31) Anion Gap 7 (5-15) Blood Urea Nitrogen 12 mg/dL (9-23) Creatinine 0.82 mg/dL (0.700-1.30) Glomerular Filtration Rate Calc 95 mL/min (>90) BUN/Creatinine Ratio 14.6 (10.0-20.0) Serum Glucose 88 mg/dL (74-106) Calcium Level 9.2 mg/dL (8.7-10.4) Total Bilirubin 0.3 mg/dL (0.2-1.0) Aspartate Amino Transferase (AST) 18 U/L (13-40) Alanine Aminotransferase (ALT) 12 U/L (7-40) Alkaline Phosphatase 115 U/L (46-116) Total Protein 6.5 g/dL (5.7-8.2) Albumin 3.5 g/dL (3.2-4.8) Urine Opiates Screen Neg (NEGATIVE) Urine Fentanyl Screen Neg (NEGATIVE) Urine Barbiturates Screen Neg (NEGATIVE) Urine Phencyclidine Screen Neg (NEGATIVE) Urine Amphetamines Screen Neg (NEGATIVE) Urine Benzodiazepines Screen Neg (NEGATIVE) Urine Cocaine Screen Neg (NEGATIVE) Urine Cannabinoids Screen Neg (NEGATIVE) Troponin I High Sensitivity 3 ng/L (</=54) Lipase 38 U/L (12-53) Thyroid Stimulating Hormone (TSH) 0.46 uIU/mL (0.55-4.78) Other Laboratory Tests 02/01/24 06:11 Brief Hx & Hospital Course: This is a 68 years old male with past medical history of COPD, spine cord stimulator placed in 2021, chronic back pain, pacemaker, left hip surgery came to emergency department because left-sided chest pain radiated to the left shoulder for one day. The patient's went to the bathroom and suddenly developed a sharp constant chest pain. He also had shortness for breath so he decided to come to hospital for further evaluation. Patient is a smoker. And recently had hip surgery December 2023. He currently on Xarelto. The patient was admitted. Workup for chest pain is in progress however the patient grew inpatient and decided to leave hospital against medical advice. The patient verbally understand if no workup for ischemic heart he might suffer from a acute IA or even however patient is still choose to leave against medical advice. Physical exam prior to leaving against medical advice show: HEENT: Normocephalic atraumatic pupils equal react to light and accommodation. Extraocular muscles intact, conjunctiva pink, oropharynx moist, no thrush, no exudate. Lymphatic: No lymphadenopathy Cardiovascular exam: S1, S2 was heard. No murmurs, rubs, gallops Lung: Clear on auscultation bilaterally, no wheeze, rale, rhonchi. GI: Abdominal soft, nondistended, nontenderness, positive bowel sounds. Extremity: No crepitus, cyanosis, edema. Pedal pulses present bilateral. Full range of motion. Skin: Normal turgor, no rash. Psych: Alert, oriented x3. Neurology: No focal deficits, cranial nerve II to XII grossly intact. This medical document was created using an electronic medical record system with [employer] direct computerized dictation system. Although this document has been carefully reviewed, there may still be some phonetic and typographical errors. These areas are purely typographical due to imperfections of the software programs, and do not reflect any compromise in the patient's medical care. Condition at Discharge: Guarded Final Diagnosis/Problems List Atypical chest pain r/o ACS COPD Chronic back pain Spinal cord stimulator 2021 Hx of hip sx 12/2023 Tobacco use Discharge Disposition: AMA Discharge Statement: "Patient was advised to return to the ER or call 911 if any headaches, dizziness, shortness of breath, chest pain, abdominal pain, bleeding, fevers, or worsening of medical condition. Patient was counseled about treatment plan, medications, possible side effects, patientverbalized understanding. All questions were answered to the best of my ability. This discharge took greater then 30 minutes in planning, reviewing documentation, counseling the patient, and discussing with other team members." ASSESSMENT ASSESSMENT Assessment Date of Service: Feb 01, 2024 Billing Provider: MANUEL HERRERA MD Common Visit Codes: [id number]/[id number] DISCH DAY >30min MANUEL HERRERA MD Feb 01, 2024 22:14
== END 2024-02-01 19:37 | disposition left against medical advice (07) | DRG 198 ==
LOC: EDBD 09:31 → ER 09:31 → TELE 14:04 → TELE-CENTR 22:46
DX: I24.9 Acute ischemic heart disease, unspecified (principal); F17.210 Nicotine dependence, cigarettes, uncomplicated; G89.29 Other chronic pain; M54.9 Dorsalgia, unspecified; Z53.29 Procedure and treatment not carried out because of patient's decision for other reasons; J44.9 Chronic obstructive pulmonary disease, unspecified; Z91.018 Allergy to other foods; Z79.899 Other long term (current) drug therapy; Z80.42 Family history of malignant neoplasm of prostate; Z83.3 Family history of diabetes mellitus; Z95.0 Presence of cardiac pacemaker; Z79.01 Long term (current) use of anticoagulants
CPT/HCPCS: 36415; 71045; 80048; 80053; 80307; 83690; 84443; 84484; 85025; 87081; 93005; 93306; 99291; 99292; G0378

== ENCOUNTER 2024-10-13 11:42 | Outpatient (CLI) | payer MEDICARE, MEDICAID ==
[~2024-10-13 11:42] MED LIST changes: -ALPR1TAB2 PO; +GABA-339 PO; -HYDR-4798 PO; -LEVO500T91 PO; -METR-344 PO; +OXYC30TA PO; -OXYC30TA77 PO
[2024-10-13 11:51] VITALS: BP 120/75; PULSE 77; RESP 16; O2SAT 96
[2024-10-13 12:01] VITALS: BP 125/72; PULSE 76; RESP 16; O2SAT 96
[2024-10-13] MEDS ORDERED: CARV6.2517 PO (13:21)
[2024-10-13] MEDS ORDERED: IVAB1.7T PO (13:21)
[2024-10-13] MEDS ORDERED: DIGO0.12 PO (13:21)
[2024-10-13] MEDS ORDERED: PREG50CA PO (14:46)
[2024-10-13] MEDS ORDERED: BUDE1AER6 IN (14:49)
== END 2024-10-13 17:00 | disposition home or self-care (01) ==
LOC: CHF HDHVI 11:42
PROVIDERS: ATTEND Internal Medicine Cardiovascular Disease
DX: Z01.810 Encounter for preprocedural cardiovascular examination (principal); R06.02 Shortness of breath; R07.9 Chest pain, unspecified
CPT/HCPCS: 93005; G0463

== ENCOUNTER 2024-10-14 07:01 | Day surgery (SDC) | payer MEDICARE, MEDICAID ==
[2024-10-13 14:06] LABS: Hematocrit 41.9 % (41.0-53.0); Hemoglobin 14.1 g/dL (13.5-17.5); Mean Corpuscular Hemoglobin 28.6 pg (28.0-32.0); Mean Corpuscular Volume 84.9 fL (80.0-100.0); Nucleated Red Blood Cells % 0.0 %
[2024-10-13 14:20] LABS: INR 0.99 (0.9-1.15); Partial Thromboplastin Time 29.6 SEC (24.5-34.5); Prothrombin Time 10.5 sec (9.3-11.8)
[2024-10-13 14:35] LABS: Potassium 3.6 mmol/L (3.5-5.1); Sodium 143 mmol/L (136-145)
[2024-10-13 14:36] LABS: Anion Gap 7 (5-15); Carbon Dioxide 27 mmol/L (20-31)
[2024-10-13 14:37] LABS: Calcium 9.0 mg/dL (8.7-10.4); Chloride 109 mmol/L (98-107)
[2024-10-13 14:42] LABS: BUN/Creatinine Ratio 9.9 (10.0-20.0)
[2024-10-13 14:43] LABS: Blood Urea Nitrogen 9 mg/dL (9-23); Glucose 81 mg/dL (74-106)
[~2024-10-14] VITALS: Ht 177.8 cm; Wt 73.0 kg
[2024-10-14] VITALS (8 sets, daily range): BP systolic 108–132; BP diastolic 77–87; PULSE 70–74; RESP 11–16; TEMP 97.7; O2SAT 98–100
[~2024-10-14 07:01] MED LIST changes: +BUDE1AER6 IN; +CARV6.2517 PO; +DIGO0.12 PO; +IVAB1.7T PO; +PREG50CA PO
[2024-10-14] MEDS: IOHEXOL 350 MG/ML 100ML IJ ONE (07:58)
[2024-10-14] MEDS: ANGIOMAX 250 MG VIAL IV ONE (08:22)
[2024-10-14] MEDS: LIDOCAINE 2%HCL (LOCAL ANESTH.) INJ 20ML MDV ONE (08:23)
[2024-10-14] MEDS: SODIUM CHL 0.9% 0 ML ONE (08:23)
[2024-10-14] MEDS: fentaNYL CITRATE 100 MCG/2 ML VL ONE (08:49)
[2024-10-14] MEDS: HEPARIN SODIUM (PORCINE) 5000 UNITS/ML 1ML VIAL ONE (08:50)
[2024-10-14] MEDS: MIDAZOLAM HCL 2MG/2ML 2ml VIAL (1mg/ml) ONE (08:50)
--- NOTE | 2024-10-14 09:58 | DVHDS ---
DATE OF DISCHARGE: 10/14/2024 DISCHARGE DIAGNOSES: * Hypertension. * Tachycardia. * Ejection fraction of 50% and mild decrease in global hypokinesis. HOSPITAL COURSE: The patient is clinically stable at this time. May be discharged home. Follow up with me in 1 week. Stable at the time of discharge. DISPOSITION: Home. ACTIVITY: As instructed. DIET: 2 grams of sodium diet. Mikel Craig MD SA/EKT TID: [id number] RECEIPT: [id number]
--- NOTE | 2024-10-14 10:04 | DVHOP ---
DATE OF SURGERY: 10/14/2024 PROCEDURE TO BE PERFORMED: * Selective left and right coronary angiography. * Ventriculogram. * Right iliac angiography. * Conscious sedation. INDICATIONS: The patient has diminished left ventricular ejection fraction, history of tobacco use and COPD. DESCRIPTION OF PROCEDURE: The patient was prepped and draped in sterile conditions. 1% Xylocaine used to anesthetize the right groin. Using a Cook needle, the right femoral artery was engaged with the Seldinger technique. A 6-Stateless sheath was placed in the right femoral artery. Using a 6-Stateless JL4 catheter, selective left and right coronary angiography was performed. Using a 6-Stateless Pigtail catheter ventriculogram was done. Total contrast used was 40 mL of Optiray. Total fluoro time was 1 minute. RESULTS: * Left main without any flow-restrictive lesion. * Left anterior descending artery without any flow-restrictive lesion. * Circumflex without any flow-restrictive lesion. * Right coronary artery without any flow-restrictive lesion. * Left ventricular function shows mild global hypokinesis with an estimated ejection fraction of 50% with an LVEDP of 12-15 mmHg with no gradient across the aortic valve. CONCLUSION: The patient with mild diminished left ventricular ejection fraction with normal coronary anatomy. At this time, aggressive risk modification. Continue medical management. The patient has pacemaker. Neurostimulator was noted as well. We will continue to follow the patient. Mikel Craig MD SA/NEHA TID: [id number] RECEIPT: [id number]
--- NOTE | 2024-10-14 19:48 | DVHHP ---
ADMIT DATE: 10/14/2024 HISTORY OF PRESENT ILLNESS: The patient who is 69 years old with history of: * Hypertension. * Hyperlipidemia. * History of COPD. * Peripheral neuropathy. * History of tobacco use, but discontinued just last month. The patient, however, having no history of diabetes, now on renal dialysis. CURRENT MEDICATIONS: Include Coreg, Corlanor and digoxin. Thus, the patient has tachycardia with diminished left ventricular ejection fraction, but by being with beta-dilshad, Corlanor, digoxin, the rate controlled, his ejection fraction has improved, but symptoms, it is felt the patient should undergo coronary angiography. PERTINENT MEDICAL HISTORY: Significant for sick sinus syndrome, status post permanent pacemaker implantation in 2018 as well. He also has spinal cord stimulator implanted in 2020. He denies any syncopal episode. No melena, hematochezia, no hematemesis or hemoptysis. No history of CVA. No history of any seizure disorder. No history of any movement disorder. No history of any GI symptomatology such as irritable bowel syndrome, inflammatory bowel disease nor any history of liver disease. No history of kidney disease as well. Tobacco use yes and therefore the patient with COPD. He is intermittently using inhaler therapy. FAMILY HISTORY: Negative. SOCIAL HISTORY: Described above. PHYSICAL EXAMINATION: VITAL SIGNS: Blood pressure is 122/84, pulse of 70, O2 saturation 94% on room air. HEENT: Pupils are reactive. Funduscopic exam shows no AV nicking, no exudates, no papilledema. Sclerae anicteric. Extraocular muscles are intact. Oral mucosa moist. Posterior pharynx without any exudate. NECK: No cervical adenopathy. No supraclavicular adenopathy. No JVD appreciated. Carotid pulses are 2+ and symmetrical. Normal upstroke and contour. PULMONARY: Scattered rhonchi with expiratory wheezes, otherwise, unremarkable. No egophony. Tympanic to percussion. CARDIOVASCULAR: Regular rate. PMI is slightly diffuse, laterally displaced. ABDOMEN: Soft and nontender. Normal bowel sounds. Stool guaiac negative. NEUROLOGIC: The patient is intact. DTRs are 2+ and symmetrical. Cranial nerves 2-12 are within normal limits. DIAGNOSTIC DATA: The patient's EKG shows atrial paced rhythm. ASSESSMENT AND PLAN: Thus, the patient with: * Sick sinus syndrome. * History of tachycardia with diminished left ventricular ejection fraction. The patient is now to undergo coronary angiography to define coronary anatomy. Further recommendations after the angiogram. Mikel Craig MD SA/BILL/KIM/IQB TID: [id number] RECEIPT: [id number]
== END 2024-10-14 12:20 | disposition home or self-care (01) ==
LOC: CATH 07:01
PROVIDERS: ATTEND Internal Medicine Cardiovascular Disease
DX: I49.5 Sick sinus syndrome (principal); R00.0 Tachycardia, unspecified; I11.0 Hypertensive heart disease with heart failure; I50.20 Unspecified systolic (congestive) heart failure; J44.9 Chronic obstructive pulmonary disease, unspecified; E11.42 Type 2 diabetes mellitus with diabetic polyneuropathy; E78.5 Hyperlipidemia, unspecified; Z79.899 Other long term (current) drug therapy; Z95.0 Presence of cardiac pacemaker; Z99.2 Dependence on renal dialysis; Z87.891 Personal history of nicotine dependence; Z91.018 Allergy to other foods
CPT/HCPCS: 36415; 80048; 85025; 85610; 85730; 93458; C1760; C1769; C1894; J1644; J2250; J3010; Q9967; 99152

== ENCOUNTER 2025-01-08 07:32 | Emergency (ER) | payer MEDICARE, MEDICAID ==
[~2025-01-08] VITALS: Ht 180.3 cm; Wt 82.0 kg
--- NOTE | 2025-01-08 08:02 | ED.PDOC ---
SOB-HPI HPI Comments This is a 69 year-old male BIB EMS for SOB as of today. Patient reports recent spinal chord surgery at [facility] X[facility] days ago. Patient presents to the ED with a neck collar and states he cannot swallow or take medications. Patient has no further complaints or modifying factors at this time. Time Seen by MD: 07:45 Primary Care Provider: Clau Schuster notes: Medications, Allergies Information Source: Patient, Emergency Med Personnel Mode of Arrival: EMS Severity: Moderate Timing: Hours Duration: Since onset Past Medical History PAST MEDICAL HISTORY: COPD, DM Surgical History: Pacemaker Family History Family History: Reviewed,noncontributory to illness, Unknown Social History Smoker: Quit Less Than 1 Year, Cigarettes Alcohol: Denies ETOH Use Drugs: Denies Drug Use Lives In: Home Constitutional: denies: chills, diaphoresis, fatigue, fever, malaise, sweats, weakness, others EENTM: denies: blurred vision, double vision, ear bleeding, ear discharge, ear drainage, ear pain, ear ringing, eye pain, eye redness, hearing loss, mouth pain, mouth swelling, nasal discharge, nose bleeding, nose congestion, nose pain, photophobia, tearing, throat pain, throat swelling, voice changes, others Respiratory: reports: SOB at rest, shortness of breath, SOB with excertion; denies: cough, hemoptysis, orthopnea, stridor, wheezing, others Cardiovascular: denies: chest pain, dizzy spells, diaphoresis, Dyspnea on exertion, edema, irregular heart beat, left arm pain, lightheadedness, palpitations, PND, syncope, others Gastrointestinal: denies: abdomen distended, abdominal pain, blood streaked bowels, constipated, diarrhea, dysphagia, difficulty swallowing, hematemesis, melena, nausea, poor appetite, poor fluid intake, rectal bleeding, rectal pain, vomiting, others Genitourinary: denies: burning, dysuria, flank pain, frequency, hematuria, incontinence, penile discharge, penile sore, pain, testicle pain, testicle swelling, urgency, others Neurological: denies: dizziness, fainting, headache, left sided numbness, left sided weakness, numbness, paresthesia, pre-existing deficit, right sided numbness, right sided weakness, seizure, speech problems, tingling, tremors, weakness, others Musculoskeletal: denies: back pain, gout, joint pain, joint swelling, muscle pain, muscle stiffness, neck pain, others Integumetry: denies: bruises, change in color, change in hair/nails, dryness, laceration, lesions, lumps, rash, wounds, others Allergic/Immunocompromised: denies: Difficulty Healing, Frequent Infections, Hives, Itching, others Hematologic/Lymphatic: denies: anemia, blood clots, easy bleeding, easy bruising, swollen glands, others Endocrine: denies: excessive hunger, excessive sweating, excessive thirst, excessive urination, flushing, intolerance to cold, intolerance to heat, unexplained weight gain, unexplained weight loss, others Psychiatric: denies: anxiety, bipolar disorder, depression, hopeless, panic disorder, schizophrenia, sleepless, suicidal, others All Other Systems: Reviewed and Negative Physical Exam General Appearance: Moderate Distress HEENT: Normal ENT Inspection, Pharynx Normal, TMs Normal Neck: Full Range of Motion, Non-Tender, Normal, Normal Inspection Respiratory: Chest Non-Tender, Lungs Clear, No Accessory Muscle Use, No Respiratory Distress, Normal Breath Sounds Cardiovascular: No Edema, No JVD, No Murmur, No Gallop, Normal Peripheral Pulses, Regular Rate/Rhythm Breast Exam: Deferred Gastrointestinal: No Organomegaly, Non Tender, No Pulsatile Mass, Normal Bowel Sounds, Soft Genitalia: Deferred Pelvic: Deferred Rectal: Deferred Extremities: No calf tenderness, Normal capillary refill, Normal inspection, Normal range of motion, Non-tender, No pedal edema Musculoskeletal : Apperance: Normal Neurologic: Alert, accessibility lift technician II-XII nml as Tested, No Motor Deficits, Normal Affect, Normal Mood, No Sensory Deficits Cerebellar Function: Normal Reflexes: Normal Skin: Dry, Normal Color, Warm Peripheral Pulses: 3+ Radial (R), 3+ Radial (L) Lymphatic: No Adenopathy Was a procedure done? Was a procedure done?: No Differential Dx Differential Diagnosis: Anxiety, Asthma, Bronchitis, COPD, Panic Attack, Sinusitis, Allergic Rhinitis X-Ray, Labs, Meds, VS Vital Signs Date Time Temp Pulse Resp B/P (MAP) Pulse Ox O2 Delivery O2 Flow Rate FiO2 01/08/25 09:28 98.4 77 20 131/76 (94) 97 98.4 01/08/25 08:51 98.1 78 20 125/83 93 98.1 Lab Test 01/08/25 09:18 Range/Units White Blood Count 10.9 H 4.4-10.8 10^3/uL Red Blood Count 4.84 4.5-5.90 10^6/uL Hemoglobin 13.5 13.5-17.5 g/dL Hematocrit 40.9 L 41.0-53.0 % Mean Corpuscular Volume 84.6 80.0-100.0 fL Mean Corpuscular Hemoglobin 28.0 28.0-32.0 pg Mean Corpuscular Hemoglobin Concent 33.1 32.0-36.0 g/dL Red Cell Distribution Width 13.1 11.8-14.3 % Platelet Count 267 140-450 10^3/uL Mean Platelet Volume 6.8 L 6.9-10.8 fL Neutrophils (%) (Auto) 62.6 37.0-80.0 % Lymphocytes (%) (Auto) 22.1 10.0-50.0 % Monocytes (%) (Auto) 12.4 H 0.0-12.0 % Eosinophils (%) (Auto) 2.0 0.0-7.0 % Basophils (%) (Auto) 0.9 0.0-2.0 % Neutrophils # (Auto) 6.8 1.6-8.6 10 ^3/uL Lymphocytes # (Auto) 2.4 0.4-5.4 10 ^3/uL Monocytes # (Auto) 1.4 H 0-1.3 10 ^3/uL Eosinophils # (Auto) 0.2 0-0.8 10 ^3/uL Basophils # (Auto) 0.1 0-0.2 10 ^3/uL Nucleated Red Blood Cells 0.1 % Sodium Level 138 136-145 mmol/L Potassium Level 4.4 3.5-5.1 mmol/L Chloride Level 101 98-107 mmol/L Carbon Dioxide Level 28 20-31 mmol/L Anion Gap 9 5-15 Blood Urea Nitrogen 14 9-23 mg/dL Creatinine 1.04 0.700-1.30 mg/dL Glomerular Filtration Rate Calc 77 >90 mL/min BUN/Creatinine Ratio 13.5 10.0-20.0 Serum Glucose 79 74-106 mg/dL Calcium Level 9.7 8.7-10.4 mg/dL [facility] [address] [facility] [address] Ph: [phone] DIAGNOSTIC IMAGING Diagnostic Imaging Report : [id number] Signed PATIENT: ANGELITA WALTON ACCT: [id number] UNIT: [id number] : 1955 LOC: ER ROOM / BED: / AGE / SEX: 69 / M ADM STATUS: REG ER SERVICE 0850 ORDERING PHYSICIAN: BIENVENIDO GONZALEZ MD PROCEDURE(s): NECK - NECK FOR SOFT TISSUE REASON: SWELLING TO NECK ORDER NUMBER(s): [id number], ACCESSION NUMBER(s): [id number] XY NECK FOR SOFT TISSUE Comparison: None Indication: SWELLING TO NECK Findings: Severe prevertebral soft tissue thickening with foci of air. Postsurgical changes in the cervical spine. IMPRESSION: Severe prevertebral soft tissue thickening /edema with foci of air. Given the cervical spinal fusion hardware, this could be postoperative in nature. However, superimposed infection or inflammation should be excluded given the degree of edema and thickening. Recommend CT neck with contrast. Patient alert pain Complaining of shortness a breath difficulty swallowing. Had recent surgery on the neck. Vitals stable. Answering questions. Moving all extremities. No acute process. Heart rate within normal limits. Saturation appropriate. Surgery was done at [facility]. Explained to the patient. Continue monitoring. Time of 1ST Reevaluation: 08:31 Reevaluation 1ST: Improved Patient Education/Counseling: Diagnosis, Treatment Family Education/Counseling: No Family Present SEPSIS Sepsis Screen Physician Orders Neck For Soft Tissue (01/08/25 08:50) Imaging Transfer Request (01/08/25 10:18) Vital Signs Date Time Temp Pulse Resp B/P (MAP) Pulse Ox O2 Delivery O2 Flow Rate FiO2 01/08/25 09:28 98.4 77 20 131/76 (94) 97 98.4 01/08/25 08:51 98.1 78 20 125/83 93 98.1 Laboratory Tests Test 01/08/25 09:18 White Blood Count 10.9 10^3/uL (4.4-10.8) H Departure 1 Departure Time of Disposition: 09:05 Impression: Primary Impression: Vasospasm Additional Impression: Achalasia Disposition: 02 SHORT TERM HOSPITAL Admit to: Med Surg Condition: Guarded Critical Care Note Critical Care Time?: Yes (90 min-critical care time only) Stability Stability form required: No Heart Score Heart Score: Heart Score Response (Comments) Value History N/A 0 EKG N/A 0 Age N/A 0 Risk Factors N/A 0 Troponin N/A 0 Total 0 I personally scribed for BIENVENIDO GONZALEZ MD ([email or web address]) on 01/08/25 at 08:02. Electronically submitted by Italia Harrison ([employer]). I personally scribed for BIENVENIDO GONZALEZ MD (KEIRY) on 01/08/25 at 10:23. Electronically submitted by Italia Harrison ([employer]). BIENVENIDO GONZALEZ MD Jan 08, 2025 08:02
[2025-01-08 09:26] LABS: Hematocrit 40.9 % (41.0-53.0); Hemoglobin 13.5 g/dL (13.5-17.5); Mean Corpuscular Hemoglobin 28.0 pg (28.0-32.0); Mean Corpuscular Volume 84.6 fL (80.0-100.0); Nucleated Red Blood Cells % 0.1 %
[2025-01-08 09:30] VITALS: PULSE 77; RESP 20; O2SAT 97
[2025-01-08 09:32] LABS: Chloride 101 mmol/L (98-107); Potassium 4.4 mmol/L (3.5-5.1); Sodium 138 mmol/L (136-145)
[2025-01-08 09:33] LABS: Anion Gap 9 (5-15); Carbon Dioxide 28 mmol/L (20-31)
[2025-01-08 09:34] LABS: Calcium 9.7 mg/dL (8.7-10.4)
[2025-01-08 09:38] LABS: BUN/Creatinine Ratio 13.5 (10.0-20.0); Blood Urea Nitrogen 14 mg/dL (9-23); Glucose 79 mg/dL (74-106)
--- NOTE | 2025-01-08 09:41 | DVH ---
XY NECK FOR SOFT TISSUE Comparison: None Indication: SWELLING TO NECK Findings: Severe prevertebral soft tissue thickening with foci of air. Postsurgical changes in the cervical spine. IMPRESSION: Severe prevertebral soft tissue thickening /edema with foci of air. Given the cervical spinal fusion hardware, this could be postoperative in nature. However, superimposed infection or inflammation should be excluded given the degree of edema and thickening. Recommend CT neck with contrast.
[2025-01-08 11:20] VITALS: TEMP 99.1; O2SAT 96
[2025-01-08 11:42] VITALS: BP 127/76; PULSE 77; RESP 17
[2025-01-08] MEDS: MORPHINE SULFATE 4 MG/ML SYR/VIAL IV ONE (11:42)
[2025-01-08] MEDS: methylPREDNISolone SOD SUCC 125 MG/2 ML VL IV ONE (11:42)
[2025-01-08] MEDS: ONDANSETRON HCL 4 MG/2 ML VIAL IV ONE (11:43)
== END 2025-01-08 11:30 | disposition short-term general hospital (02) ==
LOC: ER 07:32 → EDBD 07:32 → ER 11:30
DX: I73.9 Peripheral vascular disease, unspecified (principal); K22.0 Achalasia of cardia; E11.9 Type 2 diabetes mellitus without complications; J44.9 Chronic obstructive pulmonary disease, unspecified
CPT/HCPCS: 36415; 70360; 80048; 85025; 96374; 96375; 99291; 99292; J2270; J2405; J2919